=== PATIENT | male | born 1955 | race Caucasian/White ===

== ENCOUNTER 2017-02-10 09:46 | Emergency (ER) | payer BC ==
[2017-02-10 10:02] VITALS: BP 124/82
--- NOTE | 2017-02-10 10:50 | UC ---
Respiratory Complaint HPI - HPI Summary HPI Summary: right chest pain, chest tightness, cough/productive but no hemoptysis. He has had congestion and hoarse voice as well. He has hx of asthma and nebulizer and puffers have helped. No hx of PE or dvt and no prior heart disease. No FH of PE or DVT. - History of Current Complaint Chief Complaint: UCRespiratory Stated Complaint: CONGESTION COUGH SHORTNESS OF BREATH Time Seen by Provider: 02/10/17 10:38 Hx Obtained From: Patient Onset/Duration: Gradual Onset Timing: Constant Severity Initially: Moderate Severity Currently: Moderate Character: Cough: Productive Aggravating Factors: Deep Breaths, Recumbent Position Alleviating Factors: Bronchodilator Associated Signs And Symptoms: Positive: Dyspnea, URI, Nasal Congestion, Hoarseness. Negative: Calf Pain, Calf Swelling, Edema - Allergies/Home Medications Allergies/Adverse Reactions: Allergies Allergy/AdvReac Type Severity Reaction Status Date / Time Levofloxacin [From Levaquin] Allergy Severe resp Verified 02/10/17 09:54 distress Sulfa Drugs Allergy Severe heat Verified 02/10/17 09:54 stopped Amoxicillin Allergy Intermediate Rash Verified 02/10/17 09:54 Cefaclor [From Ceclor] Allergy Mild Rash Verified 02/10/17 09:54 Codeine AdvReac Mild migraines Verified 02/10/17 09:54 Home Medications: Home Medications Albuterol 2.5MG/3ML (0.083%)* [Ventolin 2.5 MG/3 ML NEB.ABELARDO*] 2.5 mg INH ONCE [History Confirmed 02/10/17] Albuterol HFA INHALER* [Ventolin HFA Inhaler*] 1 - 2 puff INH Q4H PRN 02/10/17 [ History Confirmed 02/10/17] PMH/Surg Hx/FS Hx/Imm Hx Previously Healthy: No - asthma. - Surgical History Surgical History: Yes Surgery Procedure, Year, and Place: cholecystectomy. hernia repair x3. acl left knee. sinus surgery x2 - Family History Known Family History: Positive: Cardiac Disease, Hypertension - Social History Alcohol Use: None Substance Use Type: None Smoking Status (MU): Never Smoked Tobacco Have You Smoked in the Last Year: No - Immunization History Most Recent Influenza Vaccination: Not the 2016/2017 Season Hx Tetanus, Diphtheria Vaccination: Yes Vaccination Up to Date: Yes Review of Systems ENT: Sinus Congestion Respiratory: Shortness Of Breath, Cough All Other Systems Reviewed And Are Negative: Yes Physical Exam Triage Information Reviewed: Yes Appearance: Well-Appearing, No Pain Distress, Well-Nourished Vital Signs: Initial Vital Signs Temp 98.3 F 02/10/17 09:51 Pulse 74 02/10/17 09:51 Resp 18 02/10/17 09:51 BP 124/82 02/10/17 09:51 Pulse Ox 94 02/10/17 09:51 Vital Signs Reviewed: Yes Eye Exam: Normal ENT: Positive: Pharynx normal, TMs normal, Muffled/hoarse voice. Negative: Tonsillar swelling, Tonsillar exudate, Trismus Neck exam: Normal Neck: Positive: Supple, Nontender, No Lymphadenopathy Respiratory: Positive: No respiratory distress, No accessory muscle use, Other: - increased expiratory phase.. Negative: Respiratory distress, Accessory muscle use, Crackles, Rhonchi, Stridor, Wheezing Cardiovascular Exam: Normal Musculoskeletal Exam: Normal Neurological Exam: Normal Psychological Exam: Normal Skin Exam: Normal UC Diagnostic Evaluation - Laboratory O2 Sat by Pulse Oximetry: 94 Respiratory Course/Dx - Course Course Of Treatment: sob and right chest pain that is improved by neb. he has associated hoarse voice, congestion, cough. We have considered cardiac etiology and PE but this is c/w with uri/bronchitis. there is no tachycardia as well. NO signs of DVT and neg homans lesli. - Differential Dx/Diagnosis Provider Diagnoses: uri. acute bronchitis with reactive airway disease. Discharge - Discharge Plan Condition: Good Disposition: HOME Prescriptions: Albuterol 2.5MG/3ML (0.083%)* [Ventolin 2.5 MG/3 ML NEB.ABELARDO*] 2.5 mg INH Q6H PRN #20 neb.[email or web address] PRN Reason: Cough Azithromyxin MARKO (NF) [Z-Marko (Zithromax) 250 mg tabs #6] 1 tab PO .TODAY, THEN 1 DAILY #6 tab predniSONE TAB* [Deltasone TAB*] 20 mg PO DAILY #15 tab Patient Education Materials: Acute Bronchitis (ED) Referrals: Jennifer Akers MD [Primary Care Provider] - 2 Days
--- NOTE | 2017-02-10 11:01 | RAD ---
HISTORY: Right-sided chest pain and cough COMPARISONS: April 08, 2013 VIEWS: 4: Frontal dual-energy and lateral views of the chest. FINDINGS: CARDIOMEDIASTINAL SILHOUETTE: The cardiomediastinal silhouette is normal. CHAPO: The chapo are normal. PLEURA: The costophrenic angles are sharp. No pleural abnormalities are noted. LUNG PARENCHYMA: There is hyperinflation with flattening of the diaphragm and expansion of the AP diameter of the chest. ABDOMEN: The upper abdomen is clear. There is no subphrenic gas. BONES AND SOFT TISSUES: No bone or soft tissue abnormalities are noted. OTHER: None. IMPRESSION: HYPERINFLATION, CONSISTENT WITH COPD. NO ACTIVE CARDIOPULMONARY DISEASE.
== END 2017-02-10 11:15 | disposition home or self-care (01) ==
LOC: UCCORT 09:46
DX: J06.9 Acute upper respiratory infection, unspecified (principal); J20.9 Acute bronchitis, unspecified; Z90.49 Acquired absence of other specified parts of digestive tract; Z88.1 Allergy status to other antibiotic agents; Z88.5 Allergy status to narcotic agent; Z88.2 Allergy status to sulfonamides
CPT/HCPCS: 71020; 99212; G0463

== ENCOUNTER 2017-02-22 12:44 | Emergency (ER) | payer BC ==
[2017-02-22 12:53] VITALS: BP 138/81
[2017-02-22] MEDS ORDERED: Albuterol 2.5 MG/3 ML NEB.SOL* (0.083%) INH ONE (13:01)
[2017-02-22] MEDS ORDERED: Ipratropium 0.5MG/2.5ML NEB* 0.5 MG/2.5 ML NEB.SOLN INH ONE (13:01)
--- NOTE | 2017-02-22 13:25 | RAD ---
HISTORY: Cough and dyspnea COMPARISONS: February 10, 2017 VIEWS: 4: Frontal dual-energy and lateral views of the chest. FINDINGS: CARDIOMEDIASTINAL SILHOUETTE: The cardiomediastinal silhouette is normal. CHAPO: The chapo are normal. PLEURA: The costophrenic angles are sharp. No pleural abnormalities are noted. LUNG PARENCHYMA: There is hyperinflation with flattening of the diaphragm and expansion of the AP diameter of the chest. ABDOMEN: The upper abdomen is clear. There is no subphrenic gas. BONES AND SOFT TISSUES: No bone or soft tissue abnormalities are noted. OTHER: None. IMPRESSION: HYPERINFLATION, CONSISTENT WITH COPD. NO ACTIVE CARDIOPULMONARY DISEASE.
--- NOTE | 2017-02-22 13:47 | UC ---
Respiratory Complaint HPI - HPI Summary HPI Summary: 62 yo male with 2 week hx of dyspnea somewhat with exertion worse when supine has had right sided cp on and off x a yr seen here 2 weeks ago improved with zpak and prednisone childhood asthma uses steroid inhaler daily no f/c no headache yesterday developed a bad cough felt SOB last pm - History of Current Complaint Chief Complaint: UCRespiratory Stated Complaint: TROUBLE BREATHING Time Seen by Provider: 02/22/17 12:49 Hx Obtained From: Patient Onset/Duration: Gradual Onset, Lasting Weeks Timing: Constant Severity Initially: Mild Pain Intensity: 2 Pain Scale Used: 0-10 Numeric Character: Cough: Nonproductive Aggravating Factors: Nothing Alleviating Factors: Nothing Associated Signs And Symptoms: Positive: Dyspnea - Allergies/Home Medications Allergies/Adverse Reactions: Allergies Allergy/AdvReac Type Severity Reaction Status Date / Time Levofloxacin [From Levaquin] Allergy Severe resp Verified 02/22/17 12:53 distress Sulfa Drugs Allergy Severe heat Verified 02/22/17 12:53 stopped Amoxicillin Allergy Intermediate Rash Verified 02/22/17 12:53 Cefaclor [From Ceclor] Allergy Mild Rash Verified 02/22/17 12:53 Codeine AdvReac Mild migraines Verified 02/22/17 12:53 PMH/Surg Hx/FS Hx/Imm Hx Previously Healthy: Yes Respiratory History: Asthma, Bronchitis, Pneumonia - Surgical History Surgical History: Yes Surgery Procedure, Year, and Place: cholecystectomy. hernia repair x3. acl left knee. sinus surgery x2 - Family History Known Family History: Positive: Cardiac Disease, Hypertension, Other - no fhx PE - Social History Alcohol Use: None Substance Use Type: None Smoking Status (MU): Never Smoked Tobacco Have You Smoked in the Last Year: No - Immunization History Most Recent Influenza Vaccination: Not the 2017/2017 Season Hx Tetanus, Diphtheria Vaccination: Yes Vaccination Up to Date: Yes Review of Systems Constitutional: Negative Skin: Negative Eyes: Negative ENT: Negative Respiratory: Shortness Of Breath, Cough Cardiovascular: Negative Gastrointestinal: Negative Genitourinary: Negative Motor: Negative Neurovascular: Negative Musculoskeletal: Negative Neurological: Negative Psychological: Negative Is Patient Immunocompromised?: No All Other Systems Reviewed And Are Negative: Yes Physical Exam Triage Information Reviewed: Yes Appearance: Well-Appearing - frequent cough, No Pain Distress, Well-Nourished Vital Signs: Initial Vital Signs Temp 98.4 F 02/22/17 12:48 Pulse 75 02/22/17 12:48 Resp 14 02/22/17 12:48 BP 138/81 02/22/17 12:48 Pulse Ox 98 02/22/17 12:48 Eyes: Positive: Conjunctiva Clear ENT: Positive: Hearing grossly normal, Pharynx normal, Pharyngeal erythema, TMs normal. Negative: Tonsillar swelling, Tonsillar exudate, Muffled/hoarse voice Neck: Positive: Supple, Nontender, No Lymphadenopathy Respiratory: Positive: Lungs clear, Normal breath sounds, No respiratory distress, No accessory muscle use, Other: - PEFR 750 Cardiovascular: Positive: RRR, No Murmur Abdomen Description: Positive: Nontender, No Organomegaly Musculoskeletal: Positive: ROM Intact, No Edema Neurological: Positive: Alert, Muscle Tone Normal Psychological Exam: Normal Skin Exam: Normal UC Diagnostic Evaluation - Laboratory O2 Sat by Pulse Oximetry: 98 - normal/not hypoxic - Radiology Xray Interpretation: No Acute Changes Radiology Interpretation Completed By: Radiologist - EKG Cardiac Rate: NL Cardiac Rhythm: Sinus: Normal Ectopy: None ST Segment: Normal Re-Evaluation - Re-Evaluation First Eval Re-Evaluation Time: 14:00 Change: Improved Respiratory Course/Dx - Differential Dx/Diagnosis Differential Diagnosis/HQI/PQRI: Other - has pet parrot-?psittacosis Provider Diagnoses: Dyspnea of uncertain cause. Bronchitis Discharge - Discharge Plan Condition: Stable Disposition: HOME Prescriptions: Albuterol 2.5MG/3ML (0.083%)* [Ventolin 2.5 MG/3 ML NEB.ABELARDO*] 2.5 mg INH QID PRN #1 neb.[email or web address] PRN Reason: Wheezing DOXYcycline CAP(*) [DOXYcycline 100MG CAP(*)] 100 mg PO BID #20 cap Ipratropium 0.5MG/2.5ML NEB* [Atrovent 0.5 MG NEB.ABELARDO*] 0.5 mg INH Q4H PRN #1 meb.soln PRN Reason: Sob/Wheezing Prednisone [Deltasone] 40 mg PO DAILY #10 tab Patient Education Materials: Acute Bronchitis (ED) Referrals: Jennifer Akers MD [Primary Care Provider] - Additional Instructions: I suggest you follow up with your provider this week You may need formal pulmonary function tests and director surface transportation referral To ER for new or worsening symptoms
== END 2017-02-22 14:34 | disposition home or self-care (01) ==
LOC: UCCORT 12:44
DX: J20.9 Acute bronchitis, unspecified (principal); Z88.1 Allergy status to other antibiotic agents; Z88.2 Allergy status to sulfonamides; Z88.5 Allergy status to narcotic agent
CPT/HCPCS: 71020; 93005; 99213; G0463; J7644

== ENCOUNTER 2017-05-15 17:04 | Emergency (ER) | payer BC ==
--- NOTE | 2017-05-15 17:57 | UC ---
Upper Extremity HPI - HPI Summary HPI Summary: 62 year old female presents with complains of right hand pain secondary to falling. - History of Current Complaint Stated Complaint: PT FELL INJURY RIGHT HAND Time Seen by Provider: 05/15/17 17:56 Hx Obtained From: Patient Onset/Duration: Sudden Onset Severity Initially: Moderate Severity Currently: Moderate Pain Scale Used: 0-10 Numeric - 8 - Allergies/Home Medications Allergies/Adverse Reactions: Allergies Allergy/AdvReac Type Severity Reaction Status Date / Time Levofloxacin [From Levaquin] Allergy Severe resp Verified 05/15/17 18:16 distress Sulfa Drugs Allergy Severe heat Verified 05/15/17 18:16 stopped Amoxicillin Allergy Intermediate Rash Verified 05/15/17 18:16 Cefaclor [From Ceclor] Allergy Mild Rash Verified 05/15/17 18:16 Codeine AdvReac Mild migraines Verified 05/15/17 18:16 Home Medications: Home Medications Celecoxib [Celebrex 50 MG CAP] 50 mg PO DAILY 05/15/17 [History Confirmed ] PMH/Surg Hx/FS Hx/Imm Hx Previously Healthy: Yes - Surgical History Surgical History: Yes Surgery Procedure, Year, and Place: cholecystectomy. hernia repair x3. acl left knee. sinus surgery x2 - Family History Known Family History: Positive: Cardiac Disease, Hypertension, Other - no fhx PE - Social History Alcohol Use: None Substance Use Type: None Smoking Status (MU): Never Smoked Tobacco Have You Smoked in the Last Year: No - Immunization History Most Recent Influenza Vaccination: Not the 2017/2017 Season Hx Tetanus, Diphtheria Vaccination: Yes Vaccination Up to Date: Yes Review of Systems Constitutional: Negative Skin: Negative Eyes: Negative ENT: Negative Respiratory: Negative Cardiovascular: Negative Gastrointestinal: Negative Genitourinary: Negative Motor: Negative Neurovascular: Negative Musculoskeletal: Other: - right hand pain/swelling Neurological: Negative Psychological: Negative All Other Systems Reviewed And Are Negative: Yes Physical Exam Triage Information Reviewed: Yes Vital Signs Reviewed: Yes Eye Exam: Normal ENT Exam: Normal Dental Exam: Normal Neck exam: Normal Neck: Positive: 1 Respiratory Exam: Normal Cardiovascular Exam: Normal Abdominal Exam: Normal Musculoskeletal: Positive: Other: - right hand pain/swelling Neurological Exam: Normal Psychological Exam: Normal Skin Exam: Normal Upper Extremity Course/Dx - Differential Dx/Diagnosis Provider Diagnoses: right hand pain/swelling. right thumb sprain Discharge - Discharge Plan Condition: Stable Disposition: HOME Prescriptions: Meloxicam [Mobic] 7.5 mg PO BID PC #30 tab Patient Education Materials: Hand Sprain (ED) Referrals: Stone Simon MD [Medical Doctor] - Jennifer Akers MD [Primary Care Provider] -
[2017-05-15 18:16] VITALS: BP 126/89
--- NOTE | 2017-05-15 18:30 | RAD ---
Indication: Right hand pain. 4 views of the right hand demonstrates no fracture. There is periosteal reaction at the fifth metacarpal. IMPRESSION: No fracture is noted although periosteal thickening is noted at the fifth metacarpal.
== END 2017-05-15 18:51 | disposition home or self-care (01) ==
LOC: UCCORT 17:04
DX: S63.601A Unspecified sprain of right thumb, initial encounter (principal); W19.XXXA Unspecified fall, initial encounter; Y93.9 Activity, unspecified; Y92.9 Unspecified place or not applicable; Y99.9 Unspecified external cause status; M79.641 Pain in right hand; M79.89 Other specified soft tissue disorders
CPT/HCPCS: 99212; G0463

== ENCOUNTER 2017-12-10 12:25 | Emergency (ER) | payer BC ==
[2017-12-10 13:07] VITALS: BP 130/87
--- NOTE | 2017-12-10 13:18 | UC ---
Respiratory Complaint HPI - HPI Summary HPI Summary: 62 y/o male presents to the urgent care c/o productive cough and chest congestion w/ mild SOB an wheezing for the past week. Pt has been using his albuterol inhaler w/o any improvement. Pt states some co-worker have been Dx w/ Bronchitis. He is also concern w/ a rash in his left side of abdomen that started yesterday. Pt has Hx of shingles and he thinks it is coming back. rash is burning. Pt denies fever, SOB, chest pain, abdominal pain, N/V/D. He has taken also Alkaseltzer cold and plus ot alleviate symptoms. - History of Current Complaint Chief Complaint: UCGeneralIllness Stated Complaint: UPPER RESPIRATORY/SKIN COMPLAINT Time Seen by Provider: 12/10/17 13:16 Hx Obtained From: Patient Onset/Duration: Gradual Onset, Lasting Weeks - 1 week, Still Present, Worse Since - yesterday Timing: Constant Severity Initially: Mild Severity Currently: Moderate Pain Intensity: 4 Pain Scale Used: 0-10 Numeric Character: Cough: Productive, Sputum Description: - yellowish Aggravating Factors: Recumbent Position Alleviating Factors: OTC Meds Associated Signs And Symptoms: Positive: Dyspnea, Chills, Wheezing, URI, Nasal Congestion, Sinus Discomfort Related History: Seasonal Allergies - Risk Factors Pulmonary Embolism Risk Factors: Negative Cardiac Risk Factors: Negative Pseudomonas Risk Factors: Negative Tuberculosis Risk Factors: Negative - Allergies/Home Medications Allergies/Adverse Reactions: Allergies Allergy/AdvReac Type Severity Reaction Status Date / Time levofloxacin Allergy Severe RESP Verified 12/10/17 13:16 DISTRESS Sulfa (Sulfonamide Allergy Severe HEART Verified 12/10/17 13:16 Antibiotics) STOPPED amoxicillin Allergy Intermediate Rash Verified 12/10/17 13:16 cefaclor [From [facility]] Allergy Mild Rash Verified 12/10/17 13:16 codeine Allergy Mild MIGRANES Verified 12/10/17 13:17 Home Medications: Home Medications Meloxicam [Mobic] 7.5 mg PO BID PC PRN 12/10/17 [History] PMH/Surg Hx/FS Hx/Imm Hx Previously Healthy: Yes Other Endocrine History: fibromyalgia, osteoarthritis of back Respiratory History: Asthma - Surgical History Surgical History: Yes Surgery Procedure, Year, and Place: cholecystectomy. hernia repair x3. acl left knee. sinus surgery x2 - Family History Known Family History: Positive: Cardiac Disease, Hypertension, Other - no fhx PE - Social History Occupation: Employed Full-time Lives: With Family Alcohol Use: None Substance Use Type: None Smoking Status (MU): Never Smoked Tobacco Have You Smoked in the Last Year: No - Immunization History Most Recent Influenza Vaccination: Not the 2016/2017 Season Hx Tetanus, Diphtheria Vaccination: Yes Vaccination Up to Date: Yes Review of Systems Constitutional: Chills, Fatigue Skin: Negative Eyes: Negative ENT: Nasal Discharge - yellowish Respiratory: Shortness Of Breath - at times, Cough - yellowish phlegm,, Other - wheezing Cardiovascular: Negative Gastrointestinal: Negative Genitourinary: Negative Motor: Negative Neurovascular: Negative Musculoskeletal: Negative Neurological: Negative Psychological: Negative Is Patient Immunocompromised?: No All Other Systems Reviewed And Are Negative: Yes Physical Exam - Summary Physical Exam Summary: Vital Signs Reviewed: Yes General: well developed, well nourished male sitting in the examining table w/o any apparent distress Eyes: Positive: Conjunctiva Clear - PERRLA, EOMI, fundi grossly normal ENT: Positive: Normal ENT inspection, Hearing grossly normal, Pharynx normal, Nasal congestion - edematous and erythematous nasal mucosa, Nasal drainage - yellowish drainage, TMs normal. Negative: Tonsillar swelling, Tonsillar exudate Neck: Positive: Supple, Nontender, No Lymphadenopathy Respiratory: no orthopnea or dyspnea. Able to speak in full sentences, no retractions or accessory muscle use, no tripod position, stridor, or head bobbing. Positive breath sounds bilaterally, Posterior b/l lungs w/ scattered wheezing and rhonchi. Cardiovascular: Positive: RRR, No Murmur, Pulses Normal, Brisk Capillary Refill Abdomen Description: Positive: Nontender, No Organomegaly, Soft. Negative: CVA Tenderness (R), CVA Tenderness (L) Bowel Sounds: Positive: Present Musculoskeletal Exam: Normal Musculoskeletal: Positive: Strength Intact, ROM Intact, No Edema Neurological Exam: Normal Psychological Exam: Normal Skin Exam: Positive mild erythematous maculopapular eruption, some papule with clear vesicles. located in the left mid side of abdomen in a dermatomal distribution, mild tenderness to palpation, no swelling observed. Triage Information Reviewed: Yes Vital Signs: Initial Vital Signs Temp 98.9 F 12/10/17 12:58 Pulse 72 12/10/17 12:58 Resp 15 12/10/17 12:58 BP 130/87 12/10/17 12:58 Pulse Ox 97 12/10/17 12:58 Diagnostic Evaluation - Laboratory O2 Sat by Pulse Oximetry: 97 Respiratory Course/Dx - Course Course Of Treatment: 62 y/o male presents to the urgent care c/o productive cough and chest congestion w/ mild SOB an wheezing for the past week. Pt has been using his albuterol inhaler w/o any improvement. Pt states some co-worker have been Dx w/ Bronchitis. He is also concern w/ a rash in his left side of abdomen that started yesterday. Pt has Hx of shingles and he thinks it is coming back. rash is burning. Pt denies fever, SOB, chest pain, abdominal pain , N/V/D. He has taken also Alkaseltzer cold and plus ot alleviate symptoms.Hx obtained. Pt w/ asthma exacerbation and shingles in the left side of mid abdomen on examination. Pt w/ Positive breath sounds bilaterally, Posterior b/l lungs w/ scattered wheezing and rhonchi on examination. Pt w/. Asthma exacerbation due to Acute Bronchitis:Prednisone PO and Duoneb Treatment ordered: 1 Tx given to patient. Patient tolerated well treatment and lungs improved, mild wheezing only in posterior RT lung, O2 sat 98%. Patient left the clinic ambulating and feeling better. Chest X-ray ordred: Impression: negative for acute cardiopulmonary disease. Patient prescribed PO Z-marko, Prednisone PO taper dose and Duoneb Tx and Valtrex PO for herpes Zoster as directed below. The patient was recommended to increase fluid intake. Take medications as recommended and patient advised to continue w/ Duoneb TID. Patient recommended to return to the clinic or go to the nearest ER if symptoms do not improve or worsen. Patient understood and agreed w/ D/C instructions. - Differential Dx/Diagnosis Differential Diagnosis/HQI/PQRI: Asthma, Bronchitis, Laryngitis, Lower Resp Infection, Sinusitis, Other - pneumonia Provider Diagnoses: 1- Acute asthma exacerbation due to bronchitis. 2- Herpes Zoster in left mid abdomen Discharge - Sign-Out/Discharge Documenting (check all that apply): Patient Departure - D/C home - Discharge Plan Condition: Stable Disposition: HOME Prescriptions: Acyclovir [Acyclovir 5% TOPICAL] 5 % EX QID #1 oint...g. Albuterol/Ipratropium NEB.ABELARDO* [Duoneb (Albuterol 2.5 MG/Ipratropium 0.5 MG)] 1 neb INH Q6H PRN #1 marko PRN Reason: Wheezing Azithromyxin MARKO (NF) [Z-Marko (Zithromax) 250 mg tabs #6] 2 tab PO .TODAY, THEN 1 DAILY #6 tab predniSONE TAB* [Deltasone 20 MG TAB*] 20 mg PO DAILY #8 tab ValACYclovir (*) [Valtrex 1 GM(*)] 1 gm PO TID #21 tab Patient Education Materials: Asthma (ED), Shingles (ED), Acute Bronchitis (ED) Referrals: Jennifer Akers MD [Primary Care Provider] - 3 Days Additional Instructions: 1- Take Prednisone PO taper dose as directed starting tomorrow. First loading dose given today. Take Z-marko PO as directed 2-Use the Duoneb nebulizer treatment to alleviate SOB, and wheezing as directed . Increase fluid intake, rest and eat well. 3- If symptoms do not improve or worsen or your develop SOB with fever and severe wheezing please go immediately to the ER further evaluation and treatment. 4- Take Valtrex PO to alleviate shingles. Take Ibuprofen PO q6-8hrs prn for pain 5- F/u with your PCP in 3 days for further management on your Asthma if not improvement of symptoms - Billing Disposition and Condition Condition: STABLE Disposition: Home
[2017-12-10] MEDS ORDERED: predniSONE TAB* 20 MG PO ONE (13:43)
[2017-12-10] MEDS ORDERED: Albuterol/Ipratropium NEB.SOL* Albuterol 2.5 MG/Ipratropium 0.5 MG 3 ML INH ONE (13:44)
--- NOTE | 2017-12-10 14:18 | RAD ---
INDICATION: Productive cough and wheezing. COMPARISON: Comparison is made with prior study from February 22, 2017. TECHNIQUE: Dual-energy PA and lateral views of the chest were obtained. FINDINGS: The heart is within normal limits in size. Mediastinal and hilar contours appear within normal limits. The lungs are clear. No pleural effusion is present. IMPRESSION: NO EVIDENCE FOR ACTIVE CARDIOPULMONARY DISEASE.
== END 2017-12-10 14:38 | disposition home or self-care (01) ==
LOC: UCCORT 12:25
DX: J45.901 Unspecified asthma with (acute) exacerbation (principal); B02.9 Zoster without complications
CPT/HCPCS: 71046; 99212; A9270-GY; G0463; J7512

== ENCOUNTER 2018-03-14 10:15 | Emergency (ER) | payer BC ==
[2018-03-14] MEDS ORDERED: Morphine INJ** 4 MG/ML 1 ML CARPUJECT IV ONE (10:22)
[2018-03-14] MEDS ORDERED: Ondansetron INJ* 2 MG/ML VIAL IV ONE (10:22)
[2018-03-14] MEDS ORDERED: NS 0.9% 1000 ML* 1,000 ML IV ONE ×2 (10:22→10:48)
[2018-03-14 10:50] LABS: ABS Basophils 0.1 10^3/ul (0-0.2); ABS Eosinophils 0.1 10^3/ul (0-0.6); ABS Lymphocytes 0.8 10^3/ul (1.0-4.8); ABS Monocytes 0.5 10^3/ul (0-0.8); ABS Neutrophils 4.5 10^3/ul (1.5-7.7); ABS Nucleated RBC 0 10^3/ul; Hematocrit 50 % (42-52); Hemoglobin 17.2 g/dl (14.0-18.0); Lymphocyte % 13.1 % (25-47); Mean Corpuscular HGB Conc 35 g/dl (31-36); Mean Corpuscular Hemoglobin 30 pg (27-31); Mean Corpuscular Volume 87 fL (80-94); Mean Platelet Volume 8.4 um3 (7.4-10.4); Nucleated Red Blood Cells % 0.5; Platelet Count 144 10^3/ul (150-450); Red Blood Count 5.69 10^6/ul (4.00-5.40); Red Cell Distribution Width 14 % (10.5-15)
[2018-03-14 11:08] LABS: EGFR Non-African American 67.2 (>60)
[2018-03-14] MEDS ORDERED: Morphine INJ* 4 MG/ML 1 ML SYRINGE (NEW SYRINGE VERSION) ONE (11:17)
--- NOTE | 2018-03-14 11:35 | ED ---
GI/ HPI - HPI Summary HPI Summary: Pt is a 63 y/o male who presents to the ED c/o N/V/D for 4 days. He states the symptoms began with severe N/V, which has now resolved somewhat. Now he mainly c /o abdominal pain, abdominal spasms, chills, weakness, dehydration, body aches, and diarrhea. The diarrhea is mainly watery, but sometimes is purulent and orange. He denies any fever. The abdominal pain is not constant, and is worsened by eating or drinking. It is currently a 3/10 in severity, but last night was an 8/10. As per , he was only able to eat some applesauce yesterday and has lost 15 lbs in the past 4 days. Pt has a hx of diverticulitis , and hernia repairs. He denies any recent change in diet, travel, or camping. Pt has had recent healthcare exposure and is around small children. He denies any smoking or drinking. Pt was recently taken off Omeprazole, but took one this morning. He had a recent endoscopy, and had a bought of tachycardia 3 weeks ago. - History of Current Complaint Chief Complaint: EDNauseaVomitDiarrh Time Seen by Provider: 03/14/18 10:34 Stated Complaint: FLU LIKE SYMPTOMS Hx Obtained From: Patient, Family/Occ Med Physician - Onset/Duration: Started Days Ago - 4, Still Present Timing: Constant Severity: Severe Current Severity: Moderate - 3/10 Pain Intensity: 8 Location of Pain: Diffuse Pain Characteristics: Cramping Associated Signs and Symptoms: Positive: Weakness, Nausea, Vomiting, Weight Loss , Diarrhea, Abdominal Pain. Negative: Fever Aggravating Factor(s): Food, Liquids - Allergy/Home Medications Allergies/Adverse Reactions: Allergies Allergy/AdvReac Type Severity Reaction Status Date / Time levofloxacin Allergy Severe RESP Verified 03/14/18 10:20 DISTRESS Sulfa (Sulfonamide Allergy Severe HEART Verified 03/14/18 10:20 Antibiotics) STOPPED amoxicillin Allergy Intermediate Rash Verified 03/14/18 10:20 cefaclor [From Ceclor] Allergy Mild Rash Verified 03/14/18 10:20 codeine Allergy Mild MIGRANES Verified 03/14/18 10:20 PMH/Surg Hx/FS Hx/Imm Hx Endocrine/Hematology History: Denies: Hx Diabetes Cardiovascular History: Denies: Hx Hypertension Respiratory History: Reports: Hx Asthma - as a child GI History: Reports: Hx Diverticulosis - Diverticulitis, Hx Ulcer - GI BLEED - Surgical History Surgery Procedure, Year, and Place: cholecystectomy. hernia repair x3. acl left knee. sinus surgery x2 - Immunization History Immunizations Up to Date: Yes Infectious Disease History: No Infectious Disease History: Reports: Hx Shingles Denies: Traveled Outside the [place] in Last 30 Days - Family History Known Family History: Positive: Cardiac Disease, Hypertension, Other - no fhx PE - Social History Alcohol Use: None Hx Substance Use: No Substance Use Type: Reports: None Hx Tobacco Use: No Smoking Status (MU): Never Smoked Tobacco Have You Smoked in the Last Year: No Review of Systems Positive: Chills, Other - Body aches, dehydrated. Negative: Fever Positive: Abdominal Pain, Vomiting, Diarrhea, Nausea Positive: Weakness All Other Systems Reviewed And Are Negative: Yes Physical Exam - Summary Physical Exam Summary: Appearance: Well appearing, no pain distress Skin: warm, dry, reflects adequate perfusion Head/face: normal Eyes: EOMI, UCHE ENT: mucous membranes dry and tacky Neck: supple, non-tender Respiratory: CTA, breath sounds present Cardiovascular: RRR, pulses symmetrical Abdomen: non-tender, soft, no masses, no rebound or guarding, diminished bowel sounds Bowel Sounds: present Musculoskeletal: normal, strength/ROM intact Neuro: normal, sensory motor intact, A&Ox3 Triage Information Reviewed: Yes Vital Signs On Initial Exam: Initial Vitals Temp Pulse Resp BP Pulse Ox 96.6 F 75 16 118/85 99 03/14/18 10:17 03/14/18 10:17 03/14/18 10:17 03/14/18 10:17 03/14/18 10:17 Vital Signs Reviewed: Yes Diagnostics - Vital Signs Vital Signs Temp Pulse Resp BP Pulse Ox 03/14/18 11:26 18 03/14/18 10:17 96.6 F 75 16 118/85 99 - Laboratory Lab Results: Lab Results 03/14/18 03/14/18 03/14/18 Range/Units 10:43 10:43 10:43 WBC 6.0 (3.5-10.8) 10^3/ul RBC 5.69 H (4.00-5.40) 10^6/ul Hgb 17.2 (14.0-18.0) g/dl Hct 50 (42-52) % MCV 87 (80-94) fL MCH 30 (27-31) pg MCHC 35 (31-36) g/dl RDW 14 (10.5-15) % Plt Count 144 L (150-450) 10^3/ul MPV 8.4 (7.4-10.4) um3 Neut % (Auto) 75.5 (38-83) % Lymph % (Auto) 13.1 L (25-47) % [place] % (Auto) 9.1 H (0-7) % Eos % (Auto) 1.0 (0-6) % Baso % (Auto) 1.3 (0-2) % Absolute Neuts (auto) 4.5 (1.5-7.7) 10^3/ul Absolute Lymphs (auto) 0.8 L (1.0-4.8) 10^3/ul Absolute Monos (auto) 0.5 (0-0.8) 10^3/ul Absolute Eos (auto) 0.1 (0-0.6) 10^3/ul Absolute Basos (auto) 0.1 (0-0.2) 10^3/ul Absolute Nucleated RBC 0 10^3/ul Nucleated RBC % 0.5 Sodium 137 (135-145) mmol/L Potassium 3.4 L (3.5-5.0) mmol/L Chloride 102 (101-111) mmol/L Carbon Dioxide 30 (22-32) mmol/L Anion Gap 5 (2-11) mmol/L BUN 16 (6-24) mg/dL Creatinine 1.10 (0.67-1.17) mg/dL Est GFR ( Amer) 81.3 (>60) Est GFR (Non-Af Amer) 67.2 (>60) BUN/Creatinine Ratio 14.5 (8-20) Glucose 105 H (70-100) mg/dL Lactic Acid 0.5 (0.5-2.0) mmol/L Calcium 9.5 (8.6-10.3) mg/dL Total Bilirubin 0.60 (0.2-1.0) mg/dL AST 32 (13-39) U/L ALT 31 (7-52) U/L Alkaline Phosphatase 63 (34-104) U/L C-Reactive Protein 11.90 H (<8.01) mg/L Total Protein 7.0 (6.4-8.9) g/dL Albumin 4.3 (3.2-5.2) g/dL Globulin 2.7 (2-4) g/dL Albumin/Globulin Ratio 1.6 (1-3) Lipase 17 (11.0-82.0) U/L Result Diagrams: 03/14/18 10:43 03/14/18 10:43 Lab Statement: Any lab studies that have been ordered have been reviewed, and results considered in the medical decision making process. GIGU Course/Dx - Course Course Of Treatment: Patient with profuse watery diarrhea with some mucus in it without any exposure to C. difficile or travel outside the country. He is also not been camping. He was treated here with 2 L of IV fluids and morphine for cramping. He is unable to produce a stool specimen for testing. He will follow up closely with his primary care physician - Diagnoses Differential Diagnoses - Male: Other - C. difficile colitis, Giardia, viral gastroenteritis, bacterial gastroenteritis Provider Diagnoses: Acute gastroenteritis Discharge - Sign-Out/Discharge Documenting (check all that apply): Patient Departure - Discharge - Discharge Plan Condition: Improved Disposition: HOME Prescriptions: Hyoscyamine Sulfate [Levsin/Sl] 0.125 mg SL Q4H PRN #20 sub PRN Reason: abdominal cramping Ondansetron [Zofran Odt] 4 mg PO Q6H PRN #12 tab.rapdis PRN Reason: Nausea Patient Education Materials: Gastroenteritis (ED) Referrals: Jennifer Akers MD [Primary Care Provider] - Additional Instructions: Drink plenty of fluids. [place] diet as tolerated. Return with fever, increased abdominal pain, blood in the stools, worse, new symptoms or other concerns area did call today to schedule prompt follow-up with your doctor. - Billing Disposition and Condition Condition: IMPROVED Disposition: Home - Attestation Statements Document Initiated by Scribe: Yes Documenting Scribe: Yudi Becker Provider For Whom Scribe is Documenting (Include Credential): Agustin Caba MD Scribe Attestation: Yudi Burr, scribed for Agustin Caba MD on 03/14/18 at 2100. Scribe Documentation Reviewed: Yes Provider Attestation: The documentation as recorded by the Yudi burk accurately reflects the service I personally performed and the decisions made by me, Agustin Caba MD
[2018-03-14 13:23] LABS: Urine Appearance Clear; Urine Blood Negative (Negative); Urine Color Yellow; Urine Ketones Trace (Negative); Urine Protein Negative (Negative); Urine Specific Gravity 1.011 (1.010-1.030); Urine Urobilinogen Negative (Negative)
[2018-03-14 13:39] VITALS: BP 120/73
== END 2018-03-14 13:38 | disposition home or self-care (01) ==
LOC: ED 10:15
DX: K52.9 Noninfective gastroenteritis and colitis, unspecified (principal); R11.2 Nausea with vomiting, unspecified; R53.1 Weakness; R63.4 Abnormal weight loss; R19.7 Diarrhea, unspecified; Z88.0 Allergy status to penicillin
CPT/HCPCS: 36415; 80053; 81003; 83605; 83690; 85025; 86140; 96374; 96375; 99283; J2270; J2405

== ENCOUNTER 2018-05-02 16:22 | Emergency (ER) | payer BC ==
--- OUTSIDE RECORDS SUMMARY | 2018-05-02 16:36 | XMS REPORT | Continuity of Care Document ---
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 Payers Type Date Identification Numbers Payment Provider Subscriber Effective: 2011 Policy Number: [id number] [facility] Commercial Micaela Arizmendi PayID: [id number] [address] [address] [place] [address] Advance Directives Description No Information Available Problems Date Description Provider Status Onset: 09/23/2010 Gastroesophageal reflux disease Jennifer Akers MD Active Onset: 09/23/2010 Impaired fasting glycaemia Jennifer Akers MD Active Onset: 11/29/2008 Neck pain Jennifer Akers MD Active Onset: 07/22/2005 Sciatica Jennifer Akers MD Active Onset: 04/20/2005 Allergic rhinitis Jennifer Akers MD Active Onset: 09/25/2014 Constipation Active Onset: 02/19/2015 Fibromyalgia Jennifer Akers MD Active Onset: 08/06/2016 Mild intermittent asthma Jennifer Akers MD Active Onset: 11/06/2016 Mixed hyperlipidemia Jennifer Akers MD Active Onset: 09/16/2014 Diverticulitis Resolved Resolved: 11/16/2014 Onset: 11/16/2014 Bleeding diverticulosis Jennifer Akers MD Resolved Resolved: 11/16/2014 Family History Date Family Member(s) Problem(s) Comments : (age 49 Father due to Cancer, Years) Pancreatic Mother Hypertension : (age 72 Mother due to AL Years) Maternal Grandmother Diabetes, Adult Diabetes Mellitus,II Social History Type Date Description Comments Sex Unknown Marital Status Lives With Spouse 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 Tobacco Use Start: Unknown Never Smoked Cigarettes Smoking Status Reviewed: 09/06/17 Never Smoked Cigarettes ETOH Use Rarely consumes alcohol Tobacco Use Start: Unknown Patient has never smoked Allergies, Adverse Reactions, Alerts Date Description Reaction Status Severity Comments 03/06/2014 Penicillins Active 03/06/2014 Sulfa (Sulfonamide Antibiotics) Active 12/02/2011 Amoxicillin Active 03/06/2014 Quinolones Active 12/02/2011 Ceclor Active 03/06/2014 Ampicillin Active 04/20/2005 Codeine Active 03/06/2014 Cefaclor Active 03/06/2014 Levofloxacin Active 11/06/2016 Atorvastatin muscle spasms Active Severe Medications Medication Date Status Form Strength Qnty SIG Indications Ordering Provider Albuterol 02/26 Active Nebulizer (2.5mg/3M 225ml 3 J45.20 Oswald Sulfate /2016 L) 0.083% milliliters MD Jennifer nebulized every 4 hours as needed cough, wheezing, or shortness of breath Ipratropium 02/26 Active Solution 0.5-2.5(3 90ml 0.5 mg Oswald, [place]/Albutero /2016 )mg/3ML nebulizer 4 MD Jennifer l Sulfate times daily Azelastine HCL 02/05 Active Solution 0.1% 90ml use 2 Oswald, (Nasal) sprays in MD Jennifer each nostril twice a day Proair HFA 11/16 Active Aerosol 108(90Bas 3unit 2 puffs Bey, /2014 e) s every 4 Darron, mcg/Act hours as DO needed Tramadol HCL 11/19 Active Tablets 50mg 540ta take 2 Oswald, bs tablets by MD Jennifer mouth four times a day as needed for pain mdd 6 Trazodone HCL 04/20 Active Tablets 50mg 90tab take 1 Oswald s tablet at MD Jennifer bedtime Docusate Sodium Active Tablets 100mg Once Daily Unknown / Mucinex Active Tablets ER 600mg Every 12 Unknown /0000 12HR Hours Coenzyme Q10 Active Capsules 200-20mg- Once Daily Unknown Unit Librax Active Capsules 5-2.5mg 1 by mouth Bony, /0000 up to four Serafin, times a day Multivitamin 00 Active Tablets Adt 50+ 2 by mouth Unknown Adults 50+ /0000 once daily Omeprazole Active Capsules DR 40mg 1 by mouth M79.7 Unknown / every day Esomeprazole 04/[address] 40mg 90cap 1 by mouth M79.7 Oswald Magnesium s every day MD Jennifer - 04/25 Rosuvastatin 06/03 Hx Tablets 5mg 90tab 1 by mouth E78.2 Oswald Calcium s every day MD Jennifer - 09/06 Atorvastatin 08/06 Hx Tablets 20mg 90tab 1 by mouth E78.2 Oswald Calcium s every day MD Jennifer - 11/06 Flonase Allergy 02/05 Hx Suspension 50mcg/Act 48uni 2 sprays to Oswald, ts each MD Jennifer - nostril 04/24 daily for nasal congestion Azithromycin 10/28 Hx Tablets 250mg 4tabs as Directed - 02/05 Doxycycline 06/26 Hx Tablets 100mg 28tab 1 by mouth J01.90 Selena Akers s twice a day MD Jennifer - x 14 days 07/10 Doxycycline 01/[address] 100mg 20tab 1 by mouth 461.9 Digiovann cl s every 12 a, - hours for Joanna, 01/24 10 days, take with food but not milk Ciprofloxacin 09/17 Hx Tablets 500mg 20tab 2 Times A Unknown s Day - 10/02 Ferrous Sulfate 09/17 Hx Tablets 325(65Fe) 90tab 3 Times mg s Daily - 10/02 Metronidazole 09/17 Hx Tablets 500mg 30tab 3 Times Unknown s Daily - 10/02 Ondansetron 09/17 Hx Tablets 4mg 10tab Every 6-8 Dispers s Hours as - Needed prn 04/24 Nausea Tamiflu 06/18 Hx Capsules 75mg 10cap 1 by mouth Altaf, s twice a day Magaly Jacobo DO 09/25 Flonase 04/27 Hx Suspension 50mcg/Act 48uni 2 sprays to Oswald, ts each MD Jennifer - nostril 02/05 daily for nasal congestion Zolpidem 12/07 Hx Tablets 10mg 30tab 1 by mouth Anne Marie Akers s every at MD Jennifer - bedtime as 11/06 needed Ventolin HFA 03/02 Hx Aerosol 108mcg/Ac 3unit 2 puffs Oswald t s every 4 MD Jennifer - hours as 11/16 Pulmicort 06/26 Hx Aerosol 90mcg/Act 3unit 1 Luisito Akers /2011 s inhalation MD Jennifer - twice a day 06/03 Pantoprazole 05/[address] 40mg 90tab 1 by mouth Mason Akers s every day MD Jennifer - 04/24 Ibuprofen 07/02 Hx Tablets 800mg 90tab take 1 Oswald s tablet MD Jennifer - daily if 04/15 Astelin 04/22 Hx Solution 137mcg/Sp 3unit instill 2 Oswald ray s sprays in MD Jennifer - each 02/05 nostril times a day as needed Diphenhydramine Hx Capsules 25mg AT Bedtime Unknown HCL /0000 - 02/25 Ibuprofen 00 Hx Tablets 400mg as Needed Unknown /0000 - 02/05 Celebrex 00 Hx Capsules 50mg 1 by mouth HaydenMan /0000 every day MD chris - per pain 05/07 Immunizations CPT Code Status Date Vaccine Reaction Lot # [id number] Given 04/22/2018 Flu Vaccine NOS [id number] Given 09/06/2017 Pneumococcal 23 Immunization Pt tolerated well [id number] Adult Or Immunosuppressed Patient Q2039 Given 05/07/2017 Flu Vaccine NOS Q2039 Given 04/02/2016 Flu Vaccine NOS Q2039 Given 03/29/2015 Flu Vaccine NOS [id number] Given 03/16/2014 Influenza Virus Vaccine,Quadrivalent,Split,Prese rv Free 3 Yrs+ 70440 Given 12/11/2013 Zoster (Zostavax) 97801 Given 09/28/2009 Tetanus And Diptheria Toxoids For Adult Use-preservative free 15440 Given 11/29/2008 Tdap (Adacel) Ages 7 And Above Only Q2039 Refused 04/13/2018 Flu Vaccine NOS WILL GET AT WORK Vital Signs Date Vital Result Comment 04/25/2018 11:04am Weight 234.00 lb Heart Rate 78 /min BP Systolic 118 mmHg BP Diastolic 68 mmHg Respiratory Rate 18 /min Height 71 inches 5'11" O2 % BldC Oximetry 97 % Ra BMI (Body Mass Index) 32.6 kg/m2 09/06/2017 11:02am Weight 237.00 lb Heart Rate 76 /min BP Systolic 122 mmHg BP Diastolic 70 mmHg Respiratory Rate 18 /min Height 71 inches 5'11" 06/03/17 BMI (Body Mass Index) 33.1 kg/m2 06/03/2017 9:22am Body Temperature 97.5 F Weight 248.00 lb Heart Rate 84 /min BP Systolic 112 mmHg BP Diastolic 72 mmHg Respiratory Rate 18 /min Height 71 inches 5'11" 06/03/17 O2 % BldC Oximetry 97 % BMI (Body Mass Index) 34.6 kg/m2 02/25/2017 9:03am Body Temperature 97.6 F Weight 246.00 lb Heart Rate 80 /min BP Systolic 140 mmHg BP Diastolic 70 mmHg Respiratory Rate 18 /min Height 71.5 inches 5'11.50" 08/06/16 O2 % BldC Oximetry 96 % BMI (Body Mass Index) 33.8 kg/m2 11/06/2016 9:39am Weight 241.00 lb Heart Rate 68 /min BP Systolic 120 mmHg BP Diastolic 70 mmHg Respiratory Rate 18 /min Height 71.5 inches 5'11.50" 08/06/16 BMI (Body Mass Index) 33.1 kg/m2 08/06/2016 9:09am Weight 242.00 lb Heart Rate 88 /min BP Systolic 122 mmHg BP Diastolic 80 mmHg Respiratory Rate 18 /min Height 71.5 inches 5'11.50" 08/06/16 BMI (Body Mass Index) 33.3 kg/m2 04/15/2016 8:34am Weight 227.00 lb Heart Rate 64 /min BP Systolic 110 mmHg BP Diastolic 74 mmHg Respiratory Rate 18 /min Height 71.5 inches 5'11.50" BMI (Body Mass Index) 31.2 kg/m2 02/06/2016 8:09am Weight 222.00 lb Heart Rate 72 /min BP Systolic 124 mmHg BP Diastolic 72 mmHg Respiratory Rate 18 /min Height 71.5 inches 5'11.50" BMI (Body Mass Index) 30.5 kg/m2 07/30/2015 1:33pm Weight 232.00 lb Heart Rate 76 /min BP Systolic 110 mmHg BP Diastolic 78 mmHg Respiratory Rate 18 /min Height 71.25 inches 5'11.25" BMI (Body Mass Index) 32.1 kg/m2 06/26/2015 11:02am Body Temperature 97.5 F Weight 230.00 lb Heart Rate 82 /min BP Systolic 120 mmHg BP Diastolic 80 mmHg Respiratory Rate 18 /min Height 71.25 inches 5'11.25" O2 % BldC Oximetry 98 % BMI (Body Mass Index) 31.9 kg/m2 06/12/2015 10:08am Weight 230.00 lb Heart Rate 76 /min BP Systolic 122 mmHg BP Diastolic 70 mmHg Respiratory Rate 18 /min Height 71.25 inches 5'11.25" BMI (Body Mass Index) 31.9 kg/m2 05/07/2015 2:52pm Weight 236.00 lb Heart Rate 76 /min BP Systolic 102 mmHg BP Diastolic 70 mmHg Respiratory Rate 18 /min Height 71.25 inches 5'11.25" BMI (Body Mass Index) 32.7 kg/m2 03/25/2015 3:56pm Weight 234.00 lb Heart Rate 76 /min BP Systolic 112 mmHg BP Diastolic 80 mmHg Respiratory Rate 18 /min Height 71.25 inches 5'11.25" BMI (Body Mass Index) 32.4 kg/m2 02/19/2015 1:40pm Body Temperature 97.1 F Weight 238.00 lb Heart Rate 76 /min BP Systolic 102 mmHg BP Diastolic 70 mmHg Respiratory Rate 18 /min Height 71.25 inches 5'11.25" BMI (Body Mass Index) 33.0 kg/m2 01/14/2015 4:01pm Body Temperature 98.5 F Weight 223.00 lb Heart Rate 84 /min BP Systolic 128 mmHg BP Diastolic 76 mmHg Respiratory Rate 19 /min Height 71.25 inches 5'11.25" O2 % BldC Oximetry 98 % Ra BMI (Body Mass Index) 30.9 kg/m2 11/16/2014 1:46pm Weight 222.00 lb Heart Rate 88 /min BP Systolic 120 mmHg BP Diastolic 80 mmHg Respiratory Rate 18 /min Height 71.25 inches 5'11.25" BMI (Body Mass Index) 30.7 kg/m2 10/02/2014 4:44pm Weight 226.00 lb Heart Rate 80 /min BP Systolic 122 mmHg BP Diastolic 80 mmHg Respiratory Rate 18 /min Height 71.25 inches 5'11.25" BMI (Body Mass Index) 31.3 kg/m2 09/25/2014 11:08am Body Temperature 98.7 F Weight 228.00 lb Heart Rate 72 /min BP Systolic 130 mmHg BP Diastolic 82 mmHg Height 71.25 inches 5'11.25" BMI (Body Mass Index) 31.6 kg/m2 04/27/2014 1:24pm Weight 233.00 lb Heart Rate 80 /min BP Systolic 122 mmHg BP Diastolic 80 mmHg Respiratory Rate 18 /min Height 71.25 inches 5'11.25" 12/07/2013 9:54am Weight 238.00 lb Heart Rate 68 /min BP Systolic 112 mmHg BP Diastolic 70 mmHg Respiratory Rate 18 /min Height 71.25 inches 5'11.25" 10/10/2013 1:10pm BP Systolic 130 mmHg BP Diastolic 72 mmHg 10/10/2013 1:10pm Weight 234.00 lb Heart Rate 84 /min BP Systolic 152 mmHg BP Diastolic 86 mmHg Respiratory Rate 18 /min Height 71.25 inches 5'11.25" Results Test Date Facility Test Result H/L Range Note Hemoglobin A1c 04/20/2018 [facility] Glycohemoglobin 5.8 % N 4.2-6.3 1, 2 (315)- - (A1c) eAG 120 mg/dL Basic ([facility]) 04/20/2018 [facility] Glucose 96 mg/dL N 74 -106 (315)- - BUN 26 mg/dL High 7-18 Creatinine 1.0 mg/dL N 0.6-1.3 Glom Filtration Rate, Estimate >60 mL/min >60 If >60 mL/min >60 3 BUN/Creat 26.0 ratio Sodium 140 mmol/L N 136-145 Potassium 4.0 mmol/L N 3.5-5.1 Chloride 105 mmol/L N 98-107 Carbon Dioxide 30 mmol/L N 21-32 Anion Gap 5 mEq/L Low 8-16 Calcium 8.7 mg/dL N 8.5-10.1 Laboratory test 04/20/2018 [facility] Prostate 0.40 ng/ mL < 4.0 4 finding (315)- - Specific Antigen Liver Function 04/20/2018 [facility] Total Protein 7.1 g/ dL N 6.4-8.2 Tests (315)- - Albumin 3.6 g/dL N 3.4-5.0 Globulin 3.5 g/dL N 1.9-4.3 Alb/Glob 1.0 ratio Bilirubin,Total 0.4 mg/dL N 0.2-1.0 Bilirubin,Direct 0.1 mg/dL N 0.0-0.2 Bilirubin,Indirect 0.3 mg/dL N 0.0-0.9 Sgot/Ast 30 U/L N 15-37 SGPT/Alt 33 U/L N 12-78 Alkaline Phosphatase 77 U/L N 45-117 LDL Cholesterol 04/20/2018 [facility] Cholesterol 205 mg/ dL High <200 5 Profile (315)- - Triglycerides 65 mg/dL <150 6 HDL Cholesterol 65 mg/dL >40 7 LDL-Cholesterol 127 mg/dL < 100 8 Laboratory test 02/21/2018 [facility] Urn Culture Hold URINE SPECIMEN A 9 finding <SEE NOTE> Urinalysis 02/21/2018 [facility] Color YELLOW Appearance CLEAR Spec Grav Urine 1.014 (1.003-1.030) PH Urine 6.0 (5.0-7.5) Leuk Esterase NEGATIVE (Neg) Nitrite Urine NEGATIVE (Neg) Protein Urine NEGATIVE (Neg) Glucose Urine NEGATIVE (Neg) Ketone Urine NEGATIVE (Neg) Urobilinogen 0.2 mg/dL (0-1.0) Bilirubin Urine NEGATIVE (Neg) Blood/HGB Urine NEGATIVE (Neg) 10 CBC With Diff 02/21/2018 [facility] WBC 9.6 10*3/uL (4.1-11.0) RBC 5.61 10*6/uL (4.60-6.10) HGB 16.5 g/dL (13.5-18.0) HCT 49.5 % (41.0-53.0) MCV 88.1 fL (80.0-95.0) MCH 29.4 pg (27.0-32.0) MCHC 33.3 g/dL (32.0-36.0) RDW 13.8 % (10.5-14.5) PLT 154 10*3/uL (150-450) MPV 9.3 fL (7.1-10.7) Neut % 83.4 % High (35.0-75.0) Lymph % 9.4 % Low (16.0-52.0) [place] % 5.9 % (0.0-8.0) Eos % 0.9 % (0.0-5.0) Baso % 0.4 % (0.0-4.0) Neut # 8.0 10*3/uL High (1.8-7.7) Lymph # 0.9 10*3/uL Low (1.2-4.8) [place] # 0.6 10*3/uL (0.0-0.8) Eos # 0.1 10*3/uL (0.0-0.5) Baso # 0.0 10*3/uL (0.0-0.2) 11 CMP 02/21/2018 [facility] Sodium 141 mmol/L (136-145) Potassium 3.9 mmol/L (3.6-5.2) Chloride 106 mmol/L (100-108) Co2 28 mmol/L (22-31) Anion Gap 7 mmol/L (7-16) Urea Nitrogen 24 mg/dL (7-24) Creatinine 1.10 mg/dL (0.80-1.30) BUN/Creat Ratio 21.8 RATIO High (10.0-20.0) Glucose 114 mg/dL High (70-99) Calcium 9.4 mg/dL (8.4-10.2) Total Protein 7.3 g/dL (6.4-8.2) Albumin 3.5 g/dL (3.2-4.5) Globulin 3.8 g/dL (2.7-4.3) Alb/Glob Ratio 0.9 RATIO Alkaline Phosphatase 77 U/L (45-117) Bilirubin,Total 0.4 mg/dL (0.0-1.0) Ast (Sgot) 38 U/L (11-39) Alt (SGPT) 37 U/L (12-78) GFR >60 ml/min/1.73m2 (>59) GFR ( Amer) >60 ml/min/1.73m2 (>59) GFR Interpretation (SEE NOTE) 12 Laboratory test finding 02/21/2018 [facility] Magnesium 2.2 mg/dL (1.7-2.4 ) 13 NT Pro BNP 13 pg/mL (0-125) 14 TSH,Ultrasensitive 2.881 mIU/L (0.360-4.170) 15 Laboratory test 02/21/2018 [facility] Poc Troponin I <0.02 (0.00-0.10) 16 finding ng/mL Laboratory test 09/04/2017 [facility] Prostate 0.58 < 4.0 17, 18 finding (315)- - Specific ng/mL Antigen Lipid 09/04/2017 [facility] Cholesterol 170 mg/dL < 200 19 (315)- - Triglycerides 43 mg/dL <150 20 HDL Cholesterol 66 mg/dL >40 21 LDL-Cholesterol 95 mg/dL < 100 22 Hemoglobin A1c 09/04/[address] [facility] Glycohemoglobin (A1c ) 5.9 % N 4.2-6.3 23 (315)- - eAG 123 mg/dL Comprehensive 09/04/[address] [facility] Glucose 105 mg/dL N 74-106 Metabolic-RL (315)- - BUN 27 mg/dL High 7-18 Creatinine 0.9 mg/dL N 0.6-1.3 Glom Filtration Rate, Estimate >60 mL/min >60 If >60 mL/min >60 24 BUN/Creat 30.0 ratio Sodium 140 mmol/L N 136-145 Potassium 4.0 mmol/L N 3.5-5.1 Chloride 107 mmol/L N 98-107 Carbon Dioxide 31 mmol/L N 21-32 Anion Gap 2 mEq/L Low 8-16 Calcium 8.8 mg/dL N 8.5-10.1 Total Protein 6.7 g/dL N 6.4-8.2 Albumin 3.5 g/dL N 3.4-5.0 Globulin 3.2 g/dL N 1.9-4.3 Alb/Glob 1.1 ratio Bilirubin,Total 0.5 mg/dL N 0.2-1.0 Sgot/Ast 23 U/L N 15-37 SGPT/Alt 27 U/L N 12-78 Alkaline Phosphatase 74 U/L N 45-117 Hemoglobin A1c 05/28/2017 [place] Hemoglobin A1c 5.9 % 4.1-5.9 Estimated Average Glucose Calc 123 mg/dL 71-140 Basic (BMP) 05/28/2017 [place] Sodium 140 mmol/L 135-146 25 Potassium 4.1 mmol/L 3.5-5.2 Chloride# 102 mmol/L 97-110 26 Carbon Dioxide 30 mmol/L 24-34 Glucose 85 mg/dL 70-105 Creatinine 1.0 mg/dL 0.5-1.4 Calcium 9.8 mg/dL 8.5-10.2 Non Shanell Egfr >60 >60 27 Shanell Egfr >60 >60 28 Anion Gap 8 mmol/L 7-16 29 BUN 25 mg/dL 6-26 Lipid Treatment 05/28/2017 [facility] Cholesterol 231 mg/dL High 50-199 Triglycerides 75 mg/dL 30-200 HDL 75 mg/dL High 29-71 30 Chol/ HDL Ratio 3.1 ratio Low 4.0-6.7 VLDL 15 mg/dL 2-29 LDL (Calc) 141 mg/dL High 20-99 31 Alt 25 U/L 3-42 Ast 25 U/L 8-42 Hemoglobin A1c 02/19/2017 [facility] Hemoglobin A1c 6.0 % High 4.1-5.9 32 Estimated Average Glucose Calc 126 71-140 Laboratory test finding 02/19/2017 [facility] TSH 3.44 uIU/mL 0.35-4.94 Comprehensive Met Panel-FCMG 02/19/2017 [facility] Sodium 141 mmol/L 135- 146 33 Potassium 3.8 mmol/L 3.5-5.2 Chloride# 102 mmol/L 97-110 34 Carbon Dioxide 30 mmol/L 24-34 Glucose 106 mg/dL High 70-105 BUN 24 mg/dL 6-26 Creatinine 1.1 mg/dL 0.5-1.4 Calcium 9.6 mg/dL 8.5-10.2 Total Protein 6.5 g/dL 6.0-8.0 Albumin 4.2 g/dL 3.6-4.9 Globulin 2.3 g/dL 2.0-3.5 A/G Ratio 1.8 Ratio 1.0-2.2 Total Bilirubin 0.6 mg/dL 0.1-1.3 Alkaline Phosphatase 65 U/L 24-140 Alt 32 U/L 3-42 Ast 23 U/L 8-42 Shanell Egfr >60 >60 35 Non Shanell Egfr >60 >60 36 Anion Gap 9 mmol/L 7-16 37 Hemoglobin A1c 11/02/2016 [facility] Hemoglobin A1c 5.7 % 4.1-5.9 38 Estimated Average Glucose Calc 117 71-140 Basic (BMP) 11/02/2016 [facility] Sodium 140 mmol/L 135-146 39 Potassium 4.1 mmol/L 3.5-5.2 Chloride# 105 mmol/L 97-110 40 Carbon Dioxide 27 mmol/L 24-34 Glucose 106 mg/dL High 70-105 BUN 27 mg/dL High 6-26 Creatinine 1.0 mg/dL 0.5-1.4 Calcium 9.6 mg/dL 8.5-10.2 Non Shanell Egfr >60 >60 41 Shanell Egfr >60 >60 42 Anion Gap 12 mmol/L 7-16 43 Laboratory test 11/02/2016 [facility] Hepatitis C Virus NONREACTIVE Nonreactive finding Antibody Lipid Treatment 11/02/2016 [facility] Cholesterol 204 mg/dL High 50-199 Triglycerides 53 mg/dL 30-200 HDL 63 mg/dL 29-71 44 Chol/ HDL Ratio 3.2 ratio Low 4.0-6.7 VLDL 11 mg/dL 2-29 LDL (Calc) 130 mg/dL High 20-99 45 Alt 21 U/L 3-42 Ast 24 U/L 8-42 Comprehensive Metabolic (CMP) 07/30/2016 [facility] Sodium 142 mmol/L 135- 146 46, 47 Potassium 3.9 mmol/L 3.5-5.2 Chloride# 106 mmol/L 97-110 48 Carbon Dioxide 29 mmol/L 24-34 Glucose 91 mg/dL 70-105 BUN 23 mg/dL 6-26 Creatinine 1.0 mg/dL 0.5-1.4 Calcium 9.4 mg/dL 8.5-10.2 Total Protein 6.1 g/dL 6.0-8.0 Albumin 4.1 g/dL 3.6-4.9 Globulin 2.0 g/dL 2.0-3.5 A/G Ratio 2.1 Ratio 1.0-2.2 Total Bilirubin 0.5 mg/dL 0.1-1.3 Alkaline Phosphatase 61 U/L 24-140 Alt 22 U/L 3-42 Ast 23 U/L 8-42 Shanell Egfr >60 >60 49 Non Shanell Egfr >60 >60 50 Anion Gap 11 mmol/L 7-16 51 Laboratory test finding 07/30/2016 [facility] Hemoglobin A1c 5.8 % 4.1-5.9 Esr 3 mm/hr 0-15 CBC With Auto Diff 07/30/2016 [facility] WBC 7.3 K/uL 4.1-11.0 RBC 5.46 M/uL 4.60-6.10 Hemoglobin 16.3 gm/dL 13.5-18.0 Hematocrit 48.9 % 41.0-53.0 MCV 89.6 fL 80.0-97.0 MCH 29.9 pg 27.0-32.0 MCHC 33.3 g/dL 32.0-36.0 RDW 13.6 % 11.5-14.5 PLT Count 161 K/ul 140-400 Neutrophil 65.9 % 35.0-75.0 Lymphocyte 24.5 % 16.0-52.0 Monocyte 7.1 % 2.0-10.0 Eosinophil 2.0 % 0.0-5.0 Basophil 0.5 % 0.0-4.0 Abs Neutrophils 4.8 K/uL 2.1-8.0 Abs Lymphocytes 1.8 K/uL 0.8-5.5 Abs Monocytes 0.5 K/uL 0.1-1.0 Abs Eosinophils 0.1 K/uL 0.0-0.5 Abs Basophils 0.0 K/uL 0.0-0.3 Laboratory test finding 07/30/2016 [facility] TSH 4.34 uIU/mL 0.35-4.94 PSA 0.380 ng/mL 0.000-4.000 52 Lipid 07/30/2016 [facility] Cholesterol 199 mg/dL 50-199 Triglycerides 55 mg/dL 30-200 HDL 75 mg/dL High 29-71 53 Chol/ HDL Ratio 2.6 ratio Low 4.0-6.7 VLDL 11 mg/dL 2-29 LDL (Calc) 113 mg/dL High 20-99 54 Laboratory test finding 04/15/2016 [facility] Esr 2 mm/hr 0-15 TSH 4.03 uIU/mL 0.35-4.94 Comprehensive Metabolic (CMP) 04/15/2016 [facility] Sodium 137 mmol/L 134- 142 Potassium 4.5 mmol/L 3.5-5.2 Chloride 105 mmol/L 97-109 Carbon Dioxide 30 mmol/L 24-34 Glucose 87 mg/dL 70-105 BUN 31 mg/dL High 6-26 Creatinine 0.8 mg/dL 0.5-1.4 Calcium 9.5 mg/dL 8.5-10.2 Total Protein 6.2 g/dL 6.0-8.0 Albumin 4.1 g/dL 3.6-4.9 Globulin 2.1 g/dL 2.0-3.5 A/G Ratio 2.0 Ratio 1.0-2.2 Total Bilirubin 0.7 mg/dL 0.1-1.3 Alkaline Phosphatase 57 U/L 24-140 Alt 28 U/L 3-42 Ast 36 U/L 8-42 Anion Gap 7 mmol/L 6-14 Shanell Egfr >60 >60 55 Non Shanell Egfr >60 >60 56 CBC With Auto Diff 04/15/2016 [facility] WBC 6.4 K/uL 4.1-11.0 RBC 5.11 M/uL 4.60-6.10 Hemoglobin 15.5 gm/dL 13.5-18.0 Hematocrit 45.3 % 41.0-53.0 MCV 88.6 fL 80.0-97.0 MCH 30.2 pg 27.0-32.0 MCHC 34.1 g/dL 32.0-36.0 RDW 13.8 % 11.5-14.5 PLT Count 159 K/ul 140-400 Neutrophil 66.6 % 35.0-75.0 Lymphocyte 20.5 % 16.0-52.0 Monocyte 9.5 % 2.0-10.0 Eosinophil 2.6 % 0.0-5.0 Basophil 0.8 % 0.0-4.0 Abs Neutrophils 4.3 K/uL 2.1-8.0 Abs Lymphocytes 1.3 K/uL 0.8-5.5 Abs Monocytes 0.6 K/uL 0.1-1.0 Abs Eosinophils 0.2 K/uL 0.0-0.5 Abs Basophils 0.1 K/uL 0.0-0.3 Basic (BMP) 01/30/2016 [facility] Sodium 139 mmol/L 134-142 57 Potassium 4.3 mmol/L 3.5-5.2 Chloride 103 mmol/L 97-109 Carbon Dioxide 30 mmol/L 24-34 Glucose 96 mg/dL 70-105 BUN 29 mg/dL High 6-26 Creatinine 1.0 mg/dL 0.5-1.4 Calcium 9.9 mg/dL 8.5-10.2 Anion Gap 10 mmol/L 6-14 Non Shanell Egfr >60 >60 58 Shanell Egfr >60 >60 59 Laboratory test 01/30/2016 [facility] Hemoglobin A1c 5.6 % 4.1-5.9 finding Hemoglobin A1c 07/27/2015 [facility] Glycohemoglobin (A1c ) 6.1 % 4.2-6.3 60 (315)- - eAG 128 mg/dL Laboratory test 07/27/2015 [facility] Prostate 0.35 ng/ mL 61 finding (315)- - Specific Antigen Basic Metabolic 07/27/2015 [facility] Glucose 112 mg/dL High 74-106 Panel (315)- - BUN 20 mg/dL High 7-18 Creatinine 1.0 mg/dL 0.6-1.3 Glom Filtration Rate, Estimate >60 mL/min >60 If >60 mL/min >60 62 BUN/Creat 20.0 ratio Sodium 140 mmol/L 136-145 Potassium 4.2 mmol/L 3.5-5.1 Chloride 106 mmol/L 98-107 Carbon Dioxide 29 mmol/L 21-32 Anion Gap 5 mEq/L Low 8-16 Calcium 8.6 mg/dL 8.5-10.1 BMP (Basic) 05/06/2015 [facility] Glucose 93 mg/dL 74- 106 (315)- - BUN 26 mg/dL High 7-18 Creatinine 0.9 mg/dL 0.6-1.3 Glom Filtration Rate, Estimate >60 mL/min >60 If >60 mL/min >60 63 BUN/Creat 28.8 ratio Sodium 139 mmol/L 136-145 Potassium 3.6 mmol/L 3.5-5.1 Chloride 104 mmol/L 98-107 Carbon Dioxide 28 mmol/L 21-32 Anion Gap 7 mEq/L Low 8-16 Calcium 9.5 mg/dL 8.5-10.1 Glycohemoglobin A1c 05/06/2015 [facility] Glycohemoglobin 5.8 % 4.2-6.3 64 (315)- - (A1c) eAG 120 mg/dL Laboratory test 05/06/2015 [facility] Prostate 1.00 ng/ mL 65 finding (315)- - Specific Antigen Basic Metabolic 11/15/2014 [facility] Glucose 97 mg/dL 74-106 Panel (315)- - BUN 28 mg/dL High 7-18 Creatinine 1.0 mg/dL 0.6-1.3 Glom Filtration Rate, Estimate >60 mL/min >60 If >60 mL/min >60 66 BUN/Creat 28.0 ratio Sodium 139 mmol/L 136-145 Potassium 3.9 mmol/L 3.5-5.1 Chloride 104 mmol/L 98-107 Carbon Dioxide 30 mmol/L 21-32 Anion Gap 5 mEq/L Low 8-16 Calcium 9.1 mg/dL 8.5-10.1 Glycohemoglobin A1c 11/15/2014 [facility] Glycohemoglobin 5.5 % 4.2-6.3 67 (315)- - (A1c) eAG 111 mg/dL CBC W/Automated Diff 10/02/[address] [facility] White Blood 6.2 K/uL 3.4-10.5 (315)- - Count Red Blood Count 4.63 M/uL 4.20-5.80 Hemoglobin 13.8 gm/dL 12.8-17.0 Hematocrit 41.3 % 38.0-48.0 Mean Cell Volume 89.2 fl 80.0-96.0 Mean Corpuscular HGB 29.8 pg 27.0-33.0 Mean Corpuscular HGB Conc 33.4 g/dL 31.7-36.0 Platelet Count 222 K/uL 150-400 Red Cell Distri Width SD 44.4 fl 36-51 Red Cell Distri Width %CV 14.1 % 11.6-15.8 Mean Platelet Volume 10.8 fL High 6.6-10.6 Neut% 71.4 % 33.0-73.0 Lymph % 18.0 % 17.0-56.0 [place] % 7.8 % 0.0-10.0 Eo% 2.1 % 0.0-5.0 Bas% 0.7 % 0.1-1.0 Neut# 4.39 K/uL 1.8-7.0 Lymph # 1.11 K/uL Low 1.8-7.0 [place] # 0.48 K/uL 0.0-0.8 Eos # 0.13 K/uL 0.0-0.5 Baso # 0.04 K/uL Low 0.1-0.2 Comprehensive Metabolic 09/25/2014 [facility] Glucose 138 mg/dL High 74-106 Panel (315)- - BUN 19 mg/dL High 7-18 Creatinine 1.1 mg/dL 0.6-1.3 Glom Filtration Rate, Estimate >60 mL/min >60 If >60 mL/min >60 68 BUN/Creat 17.2 ratio Sodium 143 mmol/L 136-145 Potassium 3.6 mmol/L 3.5-5.1 Chloride 108 mmol/L High 98-107 Carbon Dioxide 29 mmol/L 21-32 Anion Gap 6 mEq/L Low 8-16 Calcium 8.8 mg/dL 8.5-10.1 Total Protein 6.7 g/dL 6.4-8.2 Albumin 3.8 g/dL 3.4-5.0 Globulin 2.9 g/dL 1.9-4.3 Alb/Glob 1.3 ratio Bilirubin,Total 0.4 mg/dL 0.2-1.0 Sgot/Ast 23 U/L 15-37 SGPT/Alt 41 U/L 12-78 Alkaline Phosphatase 67 U/L 45-117 Laboratory test 09/25/2014 [facility] Lipase 94 U/L 73 -393 finding (315)- - CBC 09/25/[address] [facility] White Blood 17.2 K/uL High 3.4-10.5 (315)- - Count Red Blood Count 4.78 M/uL 4.20-5.80 Hemoglobin 14.3 gm/dL 12.8-17.0 Hematocrit 42.4 % 38.0-48.0 Mean Cell Volume 88.7 fl 80.0-96.0 Mean Corpuscular HGB 29.9 pg 27.0-33.0 Mean Corpuscular HGB Conc 33.7 g/dL 31.7-36.0 Platelet Count 256 K/uL 150-400 Red Cell Distri Width %CV 14.1 % 11.6-15.8 Mean Platelet Volume 10.8 fL High 6.6-10.6 Laboratory test 09/25/2014 N2N/CCD Import Alanine Aminotransferase 41 12 -78 finding (Alt/SGPT) Albumin/Globulin Ratio 1.3 Aspartate Amino Transf (Ast/Sgot) 23 15-37 BUN/Creatinine Ratio 17.2 Calcium Level 8.8 8.5-10.1 Carbon Dioxide Level 29 21-32 Chloride Level 108 High 98-107 Mean Corpuscular Hemoglobin 29.9 27.0-33.0 Mean Corpuscular Hemoglobin Concent 33.7 31.7-36.0 Mean Corpuscular Volume 88.7 80.0-96.0 RDW Coefficient of Variation 14.1 11.6-15.8 Sodium Level 143 136-145 Total Bilirubin 0.4 0.2-1.0 Laboratory test finding 09/21/2014 N2N/CCD Import Atypical Lymphocytes % 4 0-7 Band Neutrophils % 1 0-8 Basophils % 3 High 0-2 Differential Total Cells Counted 100 Eosinophils % 1 0-5 Hematocrit 40.5 38.0-48.0 Hemoglobin 13.7 12.8-17.0 Lymphocytes % 17 17-56 Mean Corpuscular Hemoglobin 30.4 27.0-33.0 Mean Corpuscular Hemoglobin Concent 33.8 31.7-36.0 Mean Corpuscular Volume 89.8 80.0-96.0 Mean Platelet Volume 10.6 6.6-10.6 Monocytes % 7 0-10 Neutrophils % 67 33-73 Normal RBC Morphology Normal Platelet Count 228 150-400 Platelet Estimate Normal RDW Coefficient of Variation 13.7 11.6-15.8 Red Blood Count 4.51 4.20-5.80 White Blood Count 8.0 3.4-10.5 Basic Metabolic Panel 09/17/2014 [facility] Glucose 100 mg/dL 74-106 (315)- - BUN 16 mg/dL 7-18 Creatinine 1.0 mg/dL 0.6-1.3 Glom Filtration Rate, Estimate >60 mL/min >60 If >60 mL/min >60 69 BUN/Creat 16.0 ratio Sodium 142 mmol/L 136-145 Potassium 3.6 mmol/L 3.5-5.1 Chloride 107 mmol/L 98-107 Carbon Dioxide 27 mmol/L 21-32 Anion Gap 8 mEq/L 8-16 Calcium 8.6 mg/dL 8.5-10.1 Laboratory test finding 09/17/2014 N2N/CCD Import BUN/Creatinine Ratio 16.0 Calcium Level 8.6 8.5-10.1 Carbon Dioxide Level 27 21-32 Chloride Level 107 98-107 Sodium Level 142 136-145 CBC 09/17/2014 [facility] White Blood Count 8.5 K/uL 3.4-10.5 (315)- - Red Blood Count 4.36 M/uL 4.20-5.80 Hemoglobin 13.2 gm/dL 12.8-17.0 Hematocrit 39.2 % 38.0-48.0 Mean Cell Volume 89.9 fl 80.0-96.0 Mean Corpuscular HGB 30.3 pg 27.0-33.0 Mean Corpuscular HGB Conc 33.7 g/dL 31.7-36.0 Platelet Count 184 K/uL 150-400 Red Cell Distri Width %CV 13.9 % 11.6-15.8 Mean Platelet Volume 11.2 fL High 6.6-10.6 Laboratory test 09/17/2014 N2N/CCD Import Mean Corpuscular 30.3 27.0- 33.0 finding Hemoglobin Mean Corpuscular Hemoglobin Concent 33.7 31.7-36.0 Mean Corpuscular Volume 89.9 80.0-96.0 RDW Coefficient of Variation 13.9 11.6-15.8 Basic Metabolic Panel 09/17/2014 [facility] Glucose 120 mg/dL High 74-106 (315)- - BUN 17 mg/dL 7-18 Creatinine 0.8 mg/dL 0.6-1.3 Glom Filtration Rate, Estimate >60 mL/min >60 If >60 mL/min >60 70 BUN/Creat 21.2 ratio Sodium 141 mmol/L 136-145 Potassium 3.6 mmol/L 3.5-5.1 Chloride 108 mmol/L High 98-107 Carbon Dioxide 26 mmol/L 21-32 Anion Gap 7 mEq/L Low 8-16 Calcium 8.4 mg/dL Low 8.5-10.1 CBC 09/17/2014 [facility] White Blood Count 9.1 K/uL 3.4-10.5 (315)- - Red Blood Count 4.30 M/uL 4.20-5.80 Hemoglobin 12.7 gm/dL Low 12.8-17.0 Hematocrit 38.0 % 38.0-48.0 Mean Cell Volume 88.4 fl 80.0-96.0 Mean Corpuscular HGB 29.5 pg 27.0-33.0 Mean Corpuscular HGB Conc 33.4 g/dL 31.7-36.0 Platelet Count 159 K/uL 150-400 Red Cell Distri Width %CV 13.6 % 11.6-15.8 Mean Platelet Volume 11.3 fL High 6.6-10.6 Hemoglobin/Hematocrit 09/16/2014 [facility] Hemoglobin 13.2 gm/dL 12.8-17.0 (315)- - Hematocrit 39.6 % 38.0-48.0 CBC W/Automated Diff 09/16/2014 [facility] White Blood 9.9 K/uL 3.4-10.5 (315)- - Count Red Blood Count 4.61 M/uL 4.20-5.80 Hemoglobin 13.5 gm/dL 12.8-17.0 Hematocrit 40.3 % 38.0-48.0 Mean Cell Volume 87.4 fl 80.0-96.0 Mean Corpuscular HGB 29.3 pg 27.0-33.0 Mean Corpuscular HGB Conc 33.5 g/dL 31.7-36.0 Platelet Count 177 K/uL 150-400 Red Cell Distri Width SD 42.2 fl 36-51 Red Cell Distri Width %CV 13.6 % 11.6-15.8 Mean Platelet Volume 10.6 fL 6.6-10.6 Neut% 85.4 % High 33.0-73.0 Lymph % 9.8 % Low 17.0-56.0 [place] % 4.4 % 0.0-10.0 Eo% 0.2 % 0.0-5.0 Bas% 0.2 % 0.1-1.0 Neut# 8.48 K/uL High 1.8-7.0 Lymph # 0.97 K/uL Low 1.8-7.0 [place] # 0.44 K/uL 0.0-0.8 Eos # 0.02 K/uL 0.0-0.5 Baso # 0.02 K/uL Low 0.1-0.2 Laboratory test 09/16/2014 N2N/CCD Import Basophils # (Auto) 0.02 Low 0.1 -0.2 finding Basophils (%) (Auto) 0.2 0.1-1.0 Eosinophils # (Auto) 0.02 0.0-0.5 Eosinophils (%) (Auto) 0.2 0.0-5.0 Lymphocytes # (Auto) 0.97 Low 1.8-7.0 Lymphocytes (%) (Auto) 9.8 Low 17.0-56.0 Monocytes # (Auto) 0.44 0.0-0.8 Monocytes (%) (Auto) 4.4 0.0-10.0 Neutrophils # (Auto) 8.48 High 1.8-7.0 Neutrophils (%) (Auto) 85.4 High 33.0-73.0 Red Cell Distribution Width 42.2 36-51 Laboratory test 09/16/2014 N2N/CCD Import Alanine Aminotransferase 27 12 -78 finding (Alt/SGPT) Albumin/Globulin Ratio 1.2 Aspartate Amino Transf (Ast/Sgot) 27 15-37 Direct Bilirubin 0.1 0.0-0.2 Indirect Bilirubin 0.2 0.0-0.9 Inr International Normalized Ratio 1.0 0.9-1.1 Prothrombin Time 12.8 12.0-14.4 Stool Occult Blood Positive High Negative Total Bilirubin 0.3 0.2-1.0 Protime 09/16/[address] [facility] Protime 12.8 seconds 12.0-14.4 (315)- - Inr 1.0 0.9-1.1 71 Hemoglobin/Hematocrit 09/16/[address] [facility] Hemoglobin 14.8 gm/dL 12.8-17.0 (315)- - Hematocrit 43.4 % 38.0-48.0 Occult 09/16/[address] [facility] Stool Occult POSITIVE High Negative Blood,Stool (315)- - Blood-Single Spec Liver Function 09/16/[address] [facility] Total Protein 6.9 g/ dL 6.4-8.2 Tests (315)- - Albumin 3.7 g/dL 3.4-5.0 Globulin 3.2 g/dL 1.9-4.3 Alb/Glob 1.2 ratio Bilirubin,Total 0.3 mg/dL 0.2-1.0 Bilirubin,Direct 0.1 mg/dL 0.0-0.2 Bilirubin,Indirect 0.2 mg/dL 0.0-0.9 Sgot/Ast 27 U/L 15-37 SGPT/Alt 27 U/L 12-78 Alkaline Phosphatase 81 U/L 45-117 Basic Metabolic Panel 09/16/[address] [facility] Glucose 101 mg/dL 74-106 (315)- - BUN 32 mg/dL High 7-18 Creatinine 1.0 mg/dL 0.6-1.3 Glom Filtration Rate, Estimate >60 mL/min >60 If >60 mL/min >60 72 BUN/Creat 32.0 ratio Sodium 138 mmol/L 136-145 Potassium 3.7 mmol/L 3.5-5.1 Chloride 105 mmol/L 98-107 Carbon Dioxide 25 mmol/L 21-32 Anion Gap 8 mEq/L 8-16 Calcium 9.0 mg/dL 8.5-10.1 Laboratory test 09/16/2014 [facility] Lipase 127 U/L 73-393 finding (315)- - CBC W/Automated 09/16/[address] [facility] White Blood 9.5 K/ uL 3.4-10.5 Diff (315)- - Count Red Blood Count 5.35 M/uL 4.20-5.80 Hemoglobin 15.8 gm/dL 12.8-17.0 Hematocrit 46.6 % 38.0-48.0 Mean Cell Volume 87.1 fl 80.0-96.0 Mean Corpuscular HGB 29.5 pg 27.0-33.0 Mean Corpuscular HGB Conc 33.9 g/dL 31.7-36.0 Platelet Count 172 K/uL 150-400 Red Cell Distri Width SD 42.9 fl 36-51 Red Cell Distri Width %CV 13.6 % 11.6-15.8 Mean Platelet Volume 11.2 fL High 6.6-10.6 Neut% 72.4 % 33.0-73.0 Lymph % 17.8 % 17.0-56.0 [place] % 7.1 % 0.0-10.0 Eo% 2.3 % 0.0-5.0 Bas% 0.4 % 0.1-1.0 Neut# 6.86 K/uL 1.8-7.0 Lymph # 1.69 K/uL Low 1.8-7.0 [place] # 0.67 K/uL 0.0-0.8 Eos # 0.22 K/uL 0.0-0.5 Baso # 0.04 K/uL Low 0.1-0.2 Type And Screen 09/16/2014 [facility] Patient Blood Type O POS (315)- - Antibody Screen Negative Negative Laboratory test 09/16/[address] [facility] Crossmatch See Note 73 finding (315)- - Hemoglobin/Hematocr 09/16/2014 [facility] Hemoglobin 14.1 gm/dL 12.8-17.0 it (315)- - Hematocrit 41.6 % 38.0-48.0 LDL Cholesterol Profile 03/19/2014 N2N/CCD Import Cholesterol 183 mg/dL 74 HDL Cholesterol 58 mg/dL 75 LDL-Cholesterol 110 mg/dL 76 Triglycerides 77 mg/dL 77 Laboratory test finding 03/19/2014 N2N/CCD Import Anion Gap 11 mEq/L 8- 16 BUN 28 mg/dL High 7-18 BUN/Creat 25.4 ratio Calcium 9.4 mg/dL 8.5-10.1 Carbon Dioxide 27 mmol/L 21-32 Chloride 107 mmol/L 98-107 Creatinine 1.1 mg/dL 0.6-1.3 Glom Filtration Rate, Estimate >60 mL/min >60 Glucose 103 mg/dL 74-106 Glycohemoglobin (A1c) 5.7 % 4.2-6.3 78 Hematocrit 47.0 % 38.0-48.0 Hemoglobin 16.0 gm/dL 12.8-17.0 If >60 mL/min >60 79 Mean Cell Volume 88.3 fl 80.0-96.0 Mean Corpuscular HGB 30.1 pg 27.0-33.0 Mean Corpuscular HGB Conc 34.0 g/dL 31.7-36.0 Mean Platelet Volume 11.3 fL High 6.6-10.6 Platelet Count 152 K/uL 150-400 Potassium 3.7 mmol/L 3.5-5.1 Prostate Specific Antigen 0.41 ng/mL 80 Red Blood Count 5.32 M/uL 4.20-5.80 Red Cell Distri Width %CV 13.3 % 11.6-15.8 Sodium 141 mmol/L 136-145 White Blood Count 6.3 K/uL 3.4-10.5 eAG 117 mg/dL Laboratory test finding 10/05/2013 N2N/CCD Import % A1c 5.8 % 4.1-6.5 BUN 24.0 mg/dL High 9.0-21.0 BUN/Creat Ratio 21.8 ratio High 12.0-20.0 Calcium 9.6 mg/dL 8.7-10.5 Chloride 108.0 mmol/L High 98.0-107.0 Co2 25.0 mmol/L 22.0-30.0 Creatinine-Serum 1.1 mg/dL 0.8-1.5 Glucose 104.0 mg/dL 75.0-110.0 Potasium 4.3 mmol/L 3.6-5.0 Sodium 142.0 mmil/L 137.0-145.0 eGFR 72.6 Laboratory test finding 04/26/2013 N2N/CCD Import % A1c 5.6 % 4.1-6.5 BUN 24.0 mg/dL High 9.0-21.0 BUN/Creat Ratio 24.0 ratio High 12.0-20.0 Calcium 9.8 mg/dL 8.7-10.5 Chloride 107.0 mmol/L 98.0-107.0 Co2 27.0 mmol/L 22.0-30.0 Creatinine-Serum 1.0 mg/dL 0.8-1.5 Esr Sedrate 2.0 sec 0.0-20.0 Glucose 98.0 mg/dL 75.0-110.0 PSA 0.3 ng/mL 0.0-4.0 Potasium 4.0 mmol/L 3.6-5.0 Sodium 140.0 mmil/L 137.0-145.0 TSH 4.66 uIU/ml 0.50-6.00 eGFR 81.0 Laboratory test 04/09/2013 N2N/CCD Import Troponin-I < 0.02 ng/mL 0.00- 0.50 81 finding Laboratory test 04/09/2013 N2N/CCD Import Troponin-I < 0.02 ng/mL 0.00- 0.50 82 finding Laboratory test 04/08/2013 N2N/CCD Import Alb/Glob 1.2 ratio finding Albumin 4.0 g/dL 3.5-5.0 Alkaline Phosphatase 73 U/L 50-136 Anion Gap 11 mEq/L 8-16 BUN 23 mg/dL 5-23 BUN/Creat 23.0 ratio Bilirubin,Total 0.3 mg/dL 0.2-1.2 CK 263 U/L High 26-190 CK-MB (Mass) 5.8 ng/mL 0.5-8.2 Calcium 9.3 mg/dL 8.5-10.1 Carbon Dioxide 27 mEq/L 18-29 Chloride 106 mmol/L 98-107 Creatinine 1.0 mg/dL 0.5-1.4 Globulin 3.3 g/dL 1.9-4.3 Glom Filtration Rate, Estimate >60 mL/min >60 Glucose 92 mg/dL 76-115 If >60 mL/min >60 83 Potassium 3.8 mmol/L 3.5-5.1 Relative % Index 2.2 % <5 84 SGPT/Alt 40 U/L 30-65 Sgot/Ast 28 U/L 16-40 Sodium 140 mmol/L 136-145 Total Protein 7.3 g/dL 6.3-8.0 Troponin-I < 0.02 ng/mL 0.00-0.50 85 CBS W/Automated Diff 04/08/2013 N2N/CCD Import Bas% 0.7 % 0.1-1.0 Baso # 0.06 K/uL Low 0.1-0.2 Eo% 3.4 % 0.0-5.0 Eos # 0.31 K/uL 0.0-0.5 Hematocrit 49.4 % High 38.0-48.0 Hemoglobin 16.6 gm/dL 12.8-17.0 Lymph # 1.57 K/uL 1.2-4.0 Lymph % 17.3 % 17.0-56.0 Mean Cell Volume 88.2 fl 80.0-96.0 Mean Corpuscular HGB 29.6 pg 27.0-33.0 Mean Corpuscular HGB Conc 33.6 g/dL 31.7-36.0 Mean Platelet Volume 11.6 fL High 6.6-10.6 [place] # 0.63 K/uL High 0.0-0.6 [place] % 6.9 % 0.0-10.0 Neut# 6.53 K/uL 1.8-7.0 Neut% 71.7 % 33.0-73.0 Platelet Count 115 K/uL Low 150-400 Red Blood Count 5.60 M/uL 4.20-5.80 Red Cell Distri Width %CV 13.6 % 11.6-15.8 Red Cell Distri Width SD 43.6 fl 36-51 White Blood Count 9.1 K/uL 3.4-10.5 Laboratory test finding 02/26/2013 N2N/CCD Import Alb/Glob 1.2 ratio Albumin 4.0 g/dL 3.5-5.0 Alkaline Phosphatase 88 U/L 50-136 Anion Gap 11 mEq/L 8-16 BUN 21 mg/dL 5-23 BUN/Creat 19.0 ratio Bilirubin,Total 0.3 mg/dL 0.2-1.2 Calcium 9.6 mg/dL 8.5-10.1 Carbon Dioxide 29 mEq/L 18-29 Chloride 105 mmol/L 98-107 Creatinine 1.1 mg/dL 0.5-1.4 Globulin 3.3 g/dL 1.9-4.3 Glom Filtration Rate, Estimate >60 mL/min >60 Glucose 101 mg/dL 76-115 Hematocrit 46.6 % 38.0-48.0 Hemoglobin 16.2 gm/dL 12.8-17.0 If >60 mL/min >60 86 Lipase 154 U/L 28-380 Mean Cell Volume 87.1 fl 80.0-96.0 Mean Corpuscular HGB 30.3 pg 27.0-33.0 Mean Corpuscular HGB Conc 34.8 g/dL 31.7-36.0 Mean Platelet Volume 11.0 fL High 6.6-10.6 Platelet Count 188 K/uL 150-400 Potassium 3.8 mmol/L 3.5-5.1 Red Blood Count 5.35 M/uL 4.20-5.80 Red Cell Distri Width %CV 13.7 % 11.6-15.8 SGPT/Alt 41 U/L 30-65 Sgot/Ast 28 U/L 16-40 Sodium 141 mmol/L 136-145 Total Protein 7.3 g/dL 6.3-8.0 Urine Bilirubin - Dipstick Negative Negative Urine Blood Negative Negative Urine Clarity Clear Clear Urine Color Yellow Yellow Urine Glucose - Dipstick Negative mg/dL Negative Urine Ketone Negative mg/dL Negative Urine Leuk Esterase Negative Negative Urine Nitrite - Dipstick Negative Negative Urine PH 6.0 Low 6.5-7.5 Urine Protein - Dipstick Negative mg/dL Negative Urine Specific [place] >=1.030 1.010-1.030 Urine Urobilinogen - Dipstick 0.2 E.U./dL 0.2-1.0 White Blood Count 8.0 K/uL 3.4-10.5 Laboratory test 11/17/2012 N2N/CCD Import Throat Culture See Note 87 finding Complete 1 R73.O1,E78.2,Z12.5 2 Elevated levels of HbA1c suggest the need for more aggressive treatment of glycemia. The [employer] recommends that a primary goal of therapy should be a HbA1c of <7% and that physicians should re-evaluate the treatment regimen in patients with HbA1c values consistently >8%. 3 Note: Persistent reduction for 3 months or more in an eGFR <60 mL/min/1.73 m2 defines CKD. Patients with eGFR values >/=60 mL/min/1.73 m2 may also have CKD if evidence of persistent proteinuria is present. The original MDRD equation for estimated GFR is not valid for patients less than 18 years of age. Additional information may be found at www.kdoqi.org. 4 THIS ASSAY IS NOT INTENDED A CANCER SCREENING TEST The concentration of PSA in a given specimen, determined with assays from different manufacturers, can vary due to differences in assay methods and reagent specificity. Values obtained from different assay methods cannot be used interchangeably. Method: [employer] [place] Chemiluminescent immunoassay. 5 Reference Guidelines*: Desirable: ........... < 200 mg/dL Borderline High: ..... 200-239 mg/dL High: ................ >=240 mg/dL * The National Cholesterol Education Program (NCEP) 6 Reference Guidelines*: Normal: ............. < 150 mg/dL Borderline High: .... 150-199 mg/dL High: ............... 200-499 mg/dL Very High: .......... > 500 mg/dL * Source: National Cholesterol Education Program (NCEP) 7 Reference Guidelines*: Low HDL: ..... < 40 mg/dL Normal: ..... 40-60 mg/dL Desirable: ... > 60 mg/dL *The National Cholesterol Education Program(NCEP) 8 Reference Guidelines*: Optimal:........... <100 mg/dL Near Optimal....... 100-129 mg/dL Borderline High.... 130-159 mg/dL High............... 160-189 mg/dL Very High.......... >=190 mg/dL * Source: National Cholesterol Education Program (NCEP) 9 URINE SPECIMEN AVAILABLE IN LAB FOR 24 HOURS FOR ADD ON CULTURE Unless otherwise specified, testing performed by [email or web address] [address] [place] [address] 10 Unless otherwise specified, testing performed by [email or web address] [address] [place] [address] 11 Unless otherwise specified, testing performed by [email or web address] [address] [place] [address] 12 NORMAL KIDNEY FUNCTION OR MILD DISEASE - GFR >OR=60 CHRONIC KIDNEY DISEASE - GFR 15 - 59 RENAL FAILURE - GFR <15 Est. GFR calculation based on the MDRD study equation, which assumes a steady state for creatinine. Est. GFR should not be used for medication dosing. Unless otherwise specified, testing performed by [facility] [address] [place] [address] 13 Unless otherwise specified, testing performed by [email or web address] [address] [place] [address] 14 Unless otherwise specified, testing performed by [email or web address] [address] [place] [address] 15 PERFORMED AT [address] [place] [address] Unless otherwise specified, testing performed by [email or web address] [address] [place] [address] 16 TROPONIN LEVELS TWO TIMES THE UPPER LIMIT OF NORMAL ARE MORE PREDICTIVE OF MYOCARDIAL INFARCTION THAN LESSER ELEVATIONS WHICH CAN BE DUE TO MYOCARDIAL DAMAGE OR STRUCTURAL HEART DISEASE IN THE ABSENCE OF ANY ACUTE PROCESS ([facility] 361:9, 2009) PERFORMED BY [facility] Unless otherwise specified, testing performed by [email or web address] [address] [place] [address] 17 R73.01 E78.2 Z12.5 18 THIS ASSAY IS NOT INTENDED A CANCER SCREENING TEST The concentration of PSA in a given specimen, determined with assays from different manufacturers, can vary due to differences in assay methods and reagent specificity. Values obtained from different assay methods cannot be used interchangeably. Method: [employer] [place] Chemiluminescent immunoassay. 19 Reference Guidelines*: Desirable: ........... < 200 mg/dL Borderline High: ..... 200-239 mg/dL High: ................ >=240 mg/dL * The National Cholesterol Education Program (NCEP) 20 Reference Guidelines*: Normal: ............. < 150 mg/dL Borderline High: .... 150-199 mg/dL High: ............... 200-499 mg/dL Very High: .......... > 500 mg/dL * Source: National Cholesterol Education Program (NCEP) 21 Reference Guidelines*: Low HDL: ..... < 40 mg/dL Normal: ..... 40-60 mg/dL Desirable: ... > 60 mg/dL *The National Cholesterol Education Program(NCEP) 22 Reference Guidelines*: Optimal:........... <100 mg/dL Near Optimal....... 100-129 mg/dL Borderline High.... 130-159 mg/dL High............... 160-189 mg/dL Very High.......... >=190 mg/dL * Source: National Cholesterol Education Program (NCEP) 23 Elevated levels of HbA1c suggest the need for more aggressive treatment of glycemia. The [employer] recommends that a primary goal of therapy should be a HbA1c of <7% and that physicians should re-evaluate the treatment regimen in patients with HbA1c values consistently >8%. 24 Note: Persistent reduction for 3 months or more in an eGFR <60 mL/min/1.73 m2 defines CKD. Patients with eGFR values >/=60 mL/min/1.73 m2 may also have CKD if evidence of persistent proteinuria is present. The original MDRD equation for estimated GFR is not valid for patients less than 18 years of age. Additional information may be found at www.kdoqi.org. 25 Updated reference range on new analyzer 26 Updated reference range on new analyzer 27 Concerning GFR Guidelines: Normal function or mild renal disease, if clinically at risk: >/=60 mL/min Moderately decreased: 30-59 Severely decreased: 15-29 Renal failure: <15 Glomerular Filtration Rate (GFR) is estimated based on the MDRD equation, which assumes a steady state for creatinine as recommended by the National Kidney Disease Education Program in conjunction with the National Institutes of Health and the National Kidney Foundation. Clinical conditions in which it may be necessary to measure GFR by using clearance methods include extremes of age and body size, severe malnutrition or obesity, diseases of skeletal muscle, paraplegia or quadriplegia, vegetarian diet, rapidly changing kidney function, and calculation of the dose of potentially toxic drugs that are excreted by the kidneys. 28 Concerning GFR Guidelines for Americans: Normal function or mild renal disease, if clinically at risk: >/=60 mL/min Moderately decreased: 30-59 Severely decreased: 15-29 Renal failure: <15 29 Updated reference range on new analyzer 30 Per NCEP ATP III Guidelines: Results lower than 40 mg/dL are suggestive of increased risk for coronary artery disease. Results > or=to 60 mg/dL are considered a negative risk factor. 31 Per NCEP ATP III Guidelines: Normal Population <130 Patients with medical conditions: CHD/DM Optimal: <100 Borderline high: 130-159 High: 160-189 Very high: >189 32 3mo 33 Updated reference range on new analyzer 34 Updated reference range on new analyzer 35 Concerning GFR Guidelines for Americans: Normal function or mild renal disease, if clinically at risk: >/=60 mL/min Moderately decreased: 30-59 Severely decreased: 15-29 Renal failure: <15 36 Concerning GFR Guidelines: Normal function or mild renal disease, if clinically at risk: >/=60 mL/min Moderately decreased: 30-59 Severely decreased: 15-29 Renal failure: <15 Glomerular Filtration Rate (GFR) is estimated based on the MDRD equation, which assumes a steady state for creatinine as recommended by the National Kidney Disease Education Program in conjunction with the National Institutes of Health and the National Kidney Foundation. Clinical conditions in which it may be necessary to measure GFR by using clearance methods include extremes of age and body size, severe malnutrition or obesity, diseases of skeletal muscle, paraplegia or quadriplegia, vegetarian diet, rapidly changing kidney function, and calculation of the dose of potentially toxic drugs that are excreted by the kidneys. 37 Updated reference range on new analyzer 38 3 39 Updated reference range on new analyzer 40 Updated reference range on new analyzer 41 Concerning GFR Guidelines: Normal function or mild renal disease, if clinically at risk: >/=60 mL/min Moderately decreased: 30-59 Severely decreased: 15-29 Renal failure: <15 Glomerular Filtration Rate (GFR) is estimated based on the MDRD equation, which assumes a steady state for creatinine as recommended by the National Kidney Disease Education Program in conjunction with the National Institutes of Health and the National Kidney Foundation. Clinical conditions in which it may be necessary to measure GFR by using clearance methods include extremes of age and body size, severe malnutrition or obesity, diseases of skeletal muscle, paraplegia or quadriplegia, vegetarian diet, rapidly changing kidney function, and calculation of the dose of potentially toxic drugs that are excreted by the kidneys. 42 Concerning GFR Guidelines for Americans: Normal function or mild renal disease, if clinically at risk: >/=60 mL/min Moderately decreased: 30-59 Severely decreased: 15-29 Renal failure: <15 43 Updated reference range on new analyzer 44 Per NCEP ATP III Guidelines: Results lower than 40 mg/dL are suggestive of increased risk for coronary artery disease. Results > or=to 60 mg/dL are considered a negative risk factor. 45 Per NCEP ATP III Guidelines: Normal Population <130 Patients with medical conditions: CHD/DM Optimal: <100 Borderline high: 130-159 High: 160-189 Very high: >189 46 after 07/26 47 Updated reference range on new analyzer 48 Updated reference range on new analyzer 49 Concerning GFR Guidelines for Americans: Normal function or mild renal disease, if clinically at risk: >/=60 mL/min Moderately decreased: 30-59 Severely decreased: 15-29 Renal failure: <15 50 Concerning GFR Guidelines: Normal function or mild renal disease, if clinically at risk: >/=60 mL/min Moderately decreased: 30-59 Severely decreased: 15-29 Renal failure: <15 Glomerular Filtration Rate (GFR) is estimated based on the MDRD equation, which assumes a steady state for creatinine as recommended by the National Kidney Disease Education Program in conjunction with the National Institutes of Health and the National Kidney Foundation. Clinical conditions in which it may be necessary to measure GFR by using clearance methods include extremes of age and body size, severe malnutrition or obesity, diseases of skeletal muscle, paraplegia or quadriplegia, vegetarian diet, rapidly changing kidney function, and calculation of the dose of potentially toxic drugs that are excreted by the kidneys. 51 Updated reference range on new analyzer 52 Beginning 07/19/06 PSA values assayed at [facility] uses chemiluminescence methodology manufactured by [employer] for use on the DXI analyzer. Values obtained with different assay methods or kits can not be used interchangeably. Serum PSA measurement is not an absolute test for malignancy. The PSA value should be used in conjunction with information available from clinical evaluation and other diagnostic procedures. 53 Per NCEP ATP III Guidelines: Results lower than 40 mg/dL are suggestive of increased risk for coronary artery disease. Results > or=to 60 mg/dL are considered a negative risk factor. 54 Per NCEP ATP III Guidelines: Normal Population <130 Patients with medical conditions: CHD/DM Optimal: <100 Borderline high: 130-159 High: 160-189 Very high: >189 55 Concerning GFR Guidelines for Americans: Normal function or mild renal disease, if clinically at risk: >/=60 mL/min Moderately decreased: 30-59 Severely decreased: 15-29 Renal failure: <15 56 Concerning GFR Guidelines: Normal function or mild renal disease, if clinically at risk: >/=60 mL/min Moderately decreased: 30-59 Severely decreased: 15-29 Renal failure: <15 Glomerular Filtration Rate (GFR) is estimated based on the MDRD equation, which assumes a steady state for creatinine as recommended by the National Kidney Disease Education Program in conjunction with the National Institutes of Health and the National Kidney Foundation. Clinical conditions in which it may be necessary to measure GFR by using clearance methods include extremes of age and body size, severe malnutrition or obesity, diseases of skeletal muscle, paraplegia or quadriplegia, vegetarian diet, rapidly changing kidney function, and calculation of the dose of potentially toxic drugs that are excreted by the kidneys. 57 6 mos 58 Concerning GFR Guidelines: Normal function or mild renal disease, if clinically at risk: >/=60 mL/min Moderately decreased: 30-59 Severely decreased: 15-29 Renal failure: <15 Glomerular Filtration Rate (GFR) is estimated based on the MDRD equation, which assumes a steady state for creatinine as recommended by the National Kidney Disease Education Program in conjunction with the National Institutes of Health and the National Kidney Foundation. Clinical conditions in which it may be necessary to measure GFR by using clearance methods include extremes of age and body size, severe malnutrition or obesity, diseases of skeletal muscle, paraplegia or quadriplegia, vegetarian diet, rapidly changing kidney function, and calculation of the dose of potentially toxic drugs that are excreted by the kidneys. 59 Concerning GFR Guidelines for Americans: Normal function or mild renal disease, if clinically at risk: >/=60 mL/min Moderately decreased: 30-59 Severely decreased: 15-29 Renal failure: <15 60 Elevated levels of HbA1c suggest the need for more aggressive treatment of glycemia. The [employer] recommends that a primary goal of therapy should be a HbA1c of <7% and that physicians should re-evaluate the treatment regimen in patients with HbA1c values consistently >8%. 61 THIS ASSAY IS NOT INTENDED A CANCER SCREENING TEST The concentration of PSA in a given specimen, determined with assays from different manufacturers, can vary due to differences in assay methods and reagent specificity. Values obtained from different assay methods cannot be used interchangeably. 62 Note: Persistent reduction for 3 months or more in an eGFR <60 mL/min/1.73 m2 defines CKD. Patients with eGFR values >/=60 mL/min/1.73 m2 may also have CKD if evidence of persistent proteinuria is present. The original MDRD equation for estimated GFR is not valid for patients less than 18 years of age. Additional information may be found at [email or web address]. 63 Note: Persistent reduction for 3 months or more in an eGFR <60 mL/min/1.73 m2 defines CKD. Patients with eGFR values >/=60 mL/min/1.73 m2 may also have CKD if evidence of persistent proteinuria is present. The original MDRD equation for estimated GFR is not valid for patients less than 18 years of age. Additional information may be found at [email or web address]. 64 Elevated levels of HbA1c suggest the need for more aggressive treatment of glycemia. The [employer] recommends that a primary goal of therapy should be a HbA1c of <7% and that physicians should re-evaluate the treatment regimen in patients with HbA1c values consistently >8%. 65 THIS ASSAY IS NOT INTENDED A CANCER SCREENING TEST The concentration of PSA in a given specimen, determined with assays from different manufacturers, can vary due to differences in assay methods and reagent specificity. Values obtained from different assay methods cannot be used interchangeably. 66 Note: Persistent reduction for 3 months or more in an eGFR <60 mL/min/1.73 m2 defines CKD. Patients with eGFR values >/=60 mL/min/1.73 m2 may also have CKD if evidence of persistent proteinuria is present. The original MDRD equation for estimated GFR is not valid for patients less than 18 years of age. Additional information may be found at [email or web address]. 67 Elevated levels of HbA1c suggest the need for more aggressive treatment of glycemia. The [employer] recommends that a primary goal of therapy should be a HbA1c of <7% and that physicians should re-evaluate the treatment regimen in patients with HbA1c values consistently >8%. 68 Note: Persistent reduction for 3 months or more in an eGFR <60 mL/min/1.73 m2 defines CKD. Patients with eGFR values >/=60 mL/min/1.73 m2 may also have CKD if evidence of persistent proteinuria is present. The original MDRD equation for estimated GFR is not valid for patients less than 18 years of age. Additional information may be found at [email or web address]. 69 Note: Persistent reduction for 3 months or more in an eGFR <60 mL/min/1.73 m2 defines CKD. Patients with eGFR values >/=60 mL/min/1.73 m2 may also have CKD if evidence of persistent proteinuria is present. The original MDRD equation for estimated GFR is not valid for patients less than 18 years of age. Additional information may be found at [email or web address]. 70 Note: Persistent reduction for 3 months or more in an eGFR <60 mL/min/1.73 m2 defines CKD. Patients with eGFR values >/=60 mL/min/1.73 m2 may also have CKD if evidence of persistent proteinuria is present. The original MDRD equation for estimated GFR is not valid for patients less than 18 years of age. Additional information may be found at [email or web address]. 71 THERAPEUTIC INR RANGE: 2.0 - 3.0 DVT, Pulmonary embolus, prophylaxis against venous thrombosis or systemic embolization in high risk patients. 2.5 - 3.5 Mechanical heart valves 72 Note: Persistent reduction for 3 months or more in an eGFR <60 mL/min/1.73 m2 defines CKD. Patients with eGFR values >/=60 mL/min/1.73 m2 may also have CKD if evidence of persistent proteinuria is present. The original MDRD equation for estimated GFR is not valid for patients less than 18 years of age. Additional information may be found at [email or web address]. 73 [id number] O POS Comp? Y <N/A> 74 Reference Guidelines*: Desirable: ........... < 200 mg/dL Borderline High: ..... 200-239 mg/dL High: ................ >=240 mg/dL * The National Cholesterol Education Program (NCEP) 75 Reference Guidelines*: Low HDL: ..... < 40 mg/dL Normal: ..... 40-60 mg/dL Desirable: ... > 60 mg/dL *The National Cholesterol Education Program(NCEP) 76 Reference Guidelines*: Optimal:........... <100 mg/dL Near Optimal....... 100-129 mg/dL Borderline High.... 130-159 mg/dL High............... 160-189 mg/dL Very High.......... >=190 mg/dL * Source: National Cholesterol Education Program ( NCEP) 77 Reference Guidelines*: Normal: ............. < 150 mg/dL Borderline High: .... 150-199 mg/dL High: ............... 200-499 mg/dL Very High: .......... > 500 mg/dL * Source: National Cholesterol Education Program (NCEP) 78 Elevated levels of HbA1c suggest the need for more aggressive treatment of glycemia. The [employer] recommends that a primary goal of therapy should be a HbA1c of <7% and that physicians should re-evaluate the treatment regimen in patients with HbA1c values consistently >8%. 79 Note: Persistent reduction for 3 months or more in an eGFR <60 mL/min/1.73 m2 defines CKD. Patients with eGFR values >/=60 mL/min/1.73 m2 may also have CKD if evidence of persistent proteinuria is present. The original MDRD equation for estimated GFR is not valid for patients less than 18 years of age. Additional information may be found at [email or web address]. 80 THIS ASSAY IS NOT INTENDED A CANCER SCREENING TEST The concentration of PSA in a given specimen, determined with assays from different manufacturers, can vary due to differences in assay methods and reagent specificity. Values obtained from different assay methods cannot be used interchangeably. 81 0 - 0.5 ng/mL: No evidence of myocardial injury 0.6 - 1.4 ng/mL: Mild elevation, suggesting possible myocardial injury > 1.4 ng/mL: Consistent with myocardial injury 82 0 - 0.5 ng/mL: No evidence of myocardial injury 0.6 - 1.4 ng/mL: Mild elevation, suggesting possible myocardial injury > 1.4 ng/mL: Consistent with myocardial injury 83 Note: Persistent reduction for 3 months or more in an eGFR <60 mL/min/1.73 m2 defines CKD. Patients with eGFR values >/=60 mL/min/1.73 m2 may also have CKD if evidence of persistent proteinuria is present. The original MDRD equation for estimated GFR is not valid for patients less than 18 years of age. Additional information may be found at [email or web address]. 84 < 5%=non AMI 5 - 10%=borderline for AMI > 10%=positive for AMI FOR DIAGNOSTIC PURPOSES, THE CK-MB RESULT (MASS AND RELATIVE PERCENT INDEX) SHOULD BE USED IN CONJUNCTION WITH OTHER PERTINENT CLINICAL DATA. 85 0 - 0.5 ng/mL: No evidence of myocardial injury 0.6 - 1.4 ng/mL: Mild elevation, suggesting possible myocardial injury > 1.4 ng/mL: Consistent with myocardial injury 86 Note: Persistent reduction for 3 months or more in an eGFR <60 mL/min/1.73 m2 defines CKD. Patients with eGFR values >/=60 mL/min/1.73 m2 may also have CKD if evidence of persistent proteinuria is present. The original MDRD equation for estimated GFR is not valid for patients less than 18 years of age. Additional information may be found at [email or web address]. 87 NORMAL THROAT SHAY Procedures Date Code Description Status 09/06/2017 08313 Brief Emotional/Behav Assessment W/ Scoring Doc Per Completed Standard Inst 06/03/2017 95252 Measure Blood Oxygen Level Single Determination Completed 02/25/2017 97517 Measure Blood Oxygen Level Single Determination Completed 04/15/2016 46372 Electrocardiogram Complete Completed 06/26/2015 94525 Measure Blood Oxygen Level Single Determination Completed 01/14/2015 12884 Measure Blood Oxygen Level Single Determination Completed 05/24/2012 99162915 Colonoscopy Completed Encounters Type Date Location Provider Dx Diagnosis Office Visit 09/06/2017 [facility] Jennifer Akers MD Z68.33 Body mass index (BMI ) 11:00a 33.0-33.9, adult Z23 Encounter for immunization K21.9 Gastro-esophageal reflux disease without esophagitis R73.01 Impaired fasting glucose M54.2 Cervicalgia M54.30 Sciatica, unspecified side J30.9 Allergic rhinitis, unspecified K59.00 Constipation, unspecified M79.7 Fibromyalgia J45.20 Mild intermittent asthma, uncomplicated E78.2 Mixed hyperlipidemia Z12.5 Encounter for screening for malignant neoplasm of prostate Z13.89 Encounter for screening for other disorder Office Visit 06/03/2017 9:15a [facility] Jennifer Akers MD K21.9 Gastro- esophageal reflux disease without esophagitis R73.01 Impaired fasting glucose M54.2 Cervicalgia M54.30 Sciatica, unspecified side J30.9 Allergic rhinitis, unspecified K59.00 Constipation, unspecified M79.7 Fibromyalgia J45.20 Mild intermittent asthma, uncomplicated E78.2 Mixed hyperlipidemia Z12.5 Encounter for screening for malignant neoplasm of prostate S56.103A Unsp inj flexor musc/fasc/tend r mid fngr at forarm , init Office Visit 02/25/2017 9:00a [facility] Jennifer Akers MD K21.9 Gastro- esophageal reflux disease without esophagitis R73.01 Impaired fasting glucose M54.2 Cervicalgia M54.30 Sciatica, unspecified side J30.9 Allergic rhinitis, unspecified K59.00 Constipation, unspecified M79.7 Fibromyalgia J45.20 Mild intermittent asthma, uncomplicated E78.2 Mixed hyperlipidemia J45.30 Mild persistent asthma, uncomplicated Office Visit 11/06/2016 9:15a Jennifer Daniel MD K21.9 Gastro- esophageal reflux disease without esophagitis R73.01 Impaired fasting glucose M54.2 Cervicalgia M54.30 Sciatica, unspecified side J30.9 Allergic rhinitis, unspecified K59.00 Constipation, unspecified M79.7 Fibromyalgia J45.20 Mild intermittent asthma, uncomplicated E78.2 Mixed hyperlipidemia Office Visit 08/06/2016 8:45a [facility] Jennifer Akers MD K21.9 Gastro- esophageal reflux disease without esophagitis R73.01 Impaired fasting glucose M54.2 Cervicalgia M54.30 Sciatica, unspecified side J30.9 Allergic rhinitis, unspecified K59.00 Constipation, unspecified M79.7 Fibromyalgia J45.20 Mild intermittent asthma, uncomplicated Z11.59 Encounter for screening for other viral diseases E78.2 Mixed hyperlipidemia Office Visit 04/15/2016 8:30a [facility] Jennifer Akers MD R00.0 Tachycardia, unspecified Office Visit 02/06/2016 8:00a [facility] Jennifer Akers MD K21.9 Gastro- esophageal reflux disease without esophagitis R73.01 Impaired fasting glucose M54.2 Cervicalgia M54.30 Sciatica, unspecified side J30.9 Allergic rhinitis, unspecified K59.00 Constipation, unspecified M79.7 Fibromyalgia J45.20 Mild intermittent asthma, uncomplicated Z12.5 Encounter for screening for malignant neoplasm of prostate Z13.220 Encounter for screening for lipoid disorders Office Visit 07/30/2015 1:15p [facility] Jennifer Akers MD K21.9 Gastro- esophageal reflux disease without esophagitis R73.01 Impaired fasting glucose M54.2 Cervicalgia M54.30 Sciatica, unspecified side J30.9 Allergic rhinitis, unspecified J45.909 Unspecified asthma, uncomplicated K59.00 Constipation, unspecified M79.7 Fibromyalgia Office Visit 06/26/2015 11:00a [facility] Jennifer Akers MD J01.90 Acute sinusitis, unspecified Office Visit 06/12/2015 10:00a [facility] Jennifer Akers MD M54.32 Sciatica, LEFT side H61.21 Impacted cerumen, RIGHT ear H65.22 Chronic serous otitis media, LEFT ear Office Visit 05/07/2015 2:45p [facility] Jennifer Akers MD K21.9 Gastro- esophageal reflux disease without esophagitis R73.01 Impaired fasting glucose M54.2 Cervicalgia M54.32 Sciatica, LEFT side J30.9 Allergic rhinitis, unspecified J45.909 Unspecified asthma, uncomplicated K59.00 Constipation, unspecified M79.7 Fibromyalgia Office Visit 03/25/2015 3:45p [facility] Jennifer Akers MD M79.7 Fibromyalgia J32.9 Chronic sinusitis, unspecified Office Visit 02/19/2015 1:30p [facility] Jennifer Akers MD K21.9 Gastro- esophageal reflux disease without esophagitis R73.01 Impaired fasting glucose M54.2 Cervicalgia M54.32 Sciatica, LEFT side J30.9 Allergic rhinitis, unspecified J45.909 Unspecified asthma, uncomplicated K59.00 Constipation, unspecified J32.9 Chronic sinusitis, unspecified M79.7 Fibromyalgia Office Visit 01/14/2015 4:00p [facility] Joanna Goff, 461.9 Sinusitis Acute [employer] Unspec Office Visit 11/16/2014 1:45p [facility] Jennifer Akers MD 530.81 Esophageal Reflux 790.21 Impaired Fasting Glucose 723.1 Cervicalgia 724.3 Sciatica 477.9 Rhinitis Allergic Cause Unspec 493.00 Asthma Extrinsic Unspecified 564.00 Constipation Unspecified 562.13 Diverticulitis Colon W/ Hemorrhage Office Visit 10/02/2014 4:30p [facility] Jennifer Akers MD 562.13 Diverticulitis Colon W/ Hemorrhage 564.00 Constipation Unspecified Office Visit 09/25/2014 11:00a [facility] Suzie Estes, 564.00 Constipation PA Unspecified Plan of Treatment Future Appointment(s):10/18/2018 8:40 am - Schedule, Laboratory at [facility]2018 9:30 am - Jennifer Akers MD at [facility]04/25/2018 - Jennifer Akers MDK21.9 Gastro-esophageal reflux disease without esophagitisComments:uses protonix about 5 times uaaipnY00.01 Impaired fasting glucoseNew Labs:Hemoglobin A1c, Scheduled: 10/18/18Basic ([facility]), Scheduled: 10/18/18Comments:improving in spite of worsening of the diet!M54.2 CervicalgiaComments:is yroxtgyvyyU75.30 Sciatica , unspecified sideComments:continue care with [facility] - has had injections needs refill of tramadol today [facility] checked and in compliance Reference #: [id number] Allergic rhinitis, unspecifiedComments:still with chronic symptoms - uses nasal sprays - sees dr guoK59.00 Constipation, unspecifiedComments:uses miralax and this controls itM79.7 FibromyalgiaNew Medication:Esomeprazole Magnesium 40 mg - 1 by mouth every dayComments:uses tramadol three times daily - refill today. [facility] checked and in compliance Reference #: [id number] Mild intermittent asthma, uncomplicatedComments:no recent pesahakdpetgE52.2 Mixed hyperlipidemiaComments:doing very without medication - keep up the good work.Z68.32 Body mass index (BMI) 32.0-32.9, adultComments:the BMI is the ratio between height and weight. goal for a person over age 65 is between 23 and 30. You are overweight. Work on healthy lifestyle, with regular exercise (20 min daily will help) and eat a healthy diet. formal diet plans work best.AllFollow up:6 mo follow-up with nonfasting labs prior Goals 04/25/2018 - Jennifer Akers MDK21.9 Gastro-esophageal reflux disease without esophagitisswitched to omeprazole and doing well.
[2018-05-02 16:40] VITALS: BP 135/92
--- NOTE | 2018-05-02 17:03 | UC ---
Throat Pain/Nasal Leeroy HPI - HPI Summary HPI Summary: 63 year old male presents with 3 day history of sore throat and bilateral ear pain. Associated with mild nasal congestion. States today started with non- productive cough and right chest wall pain. History of intermittent asthma and has used nebulizer twice in past 3 days. Denies fever, chills, dysphagia, palpitations, shortness of breath, abdominal pain, nausea, vomiting, or diarrhea. - History of Current Complaint Chief Complaint: UCRespiratory Stated Complaint: SORE THROAT Time Seen by Provider: 05/02/18 16:46 Hx Obtained From: Patient Onset/Duration: Gradual Onset, Lasting Days Pain Intensity: 4 Cough: Nonproductive Associated Signs & Symptoms: Positive: Nasal Discharge. Negative: Dysphagia, Wheezing, Sinus Discomfort, Fever, Vomiting - Allergies/Home Medications Allergies/Adverse Reactions: Allergies Allergy/AdvReac Type Severity Reaction Status Date / Time levofloxacin Allergy Severe RESP Verified 05/02/18 16:41 DISTRESS Sulfa (Sulfonamide Allergy Severe HEART Verified 05/02/18 16:41 Antibiotics) STOPPED amoxicillin Allergy Intermediate Rash Verified 05/02/18 16:41 cefaclor [From Ceclor] Allergy Mild Rash Verified 05/02/18 16:41 codeine AdvReac Mild MIGRANES Verified 05/02/18 16:41 Home Medications: Home Medications Docusate Sodium [Colace] 100 mg PO BID 05/02/18 [History Confirmed 05/02/18] Multivitamin [Multiple Vitamins] 1 tab PO DAILY 05/02/18 [History Confirmed 03/10] PMH/Surg Hx/FS Hx/Imm Hx Previously Healthy: Yes Respiratory History: Asthma GI/ History: Gastroesophageal Reflux, Other - Irritable bowel - Surgical History Surgical History: Yes Surgery Procedure, Year, and Place: cholecystectomy. hernia repair x3. acl left knee. sinus surgery x2 - Family History Known Family History: Positive: Cardiac Disease, Hypertension - Social History Occupation: Employed Full-time Lives: With Family Alcohol Use: Rare Substance Use Type: None Smoking Status (MU): Never Smoked Tobacco Have You Smoked in the Last Year: No - Immunization History Most Recent Influenza Vaccination: Not the 2017/2017 Season Hx Tetanus, Diphtheria Vaccination: Yes Vaccination Up to Date: Yes Review of Systems All Other Systems Reviewed And Are Negative: Yes Constitutional: Negative: Fever, Chills Skin: Negative: Rash Eyes: Negative: Drainage, Eye Redness ENT: Positive: Sore Throat, Ear Ache, Nasal Discharge, Sinus Congestion Respiratory: Positive: Cough. Negative: Shortness Of Breath Cardiovascular: Positive: Other - Chest wall pain. Negative: Palpitations Gastrointestinal: Negative: Abdominal Pain, Vomiting, Diarrhea, Nausea Is Patient Immunocompromised?: No Physical Exam - Summary Physical Exam Summary: GENERAL APPEARANCE: Well developed, well nourished, alert and cooperative, and appears to be in no acute distress. EYES: Conjunctiva clear. No discharge. EARS: External auditory with small amount cerumen. Tympanic membranes clear. Hearing grossly intact. NOSE: Mild nasal congestion. No nasal discharge. THROAT: Oral cavity normal. Pharyngeal erythema. No tonsilar inflammation, swelling, or exudate. Teeth and gingiva in good general condition. NECK: Neck supple, non-tender without lymphadenopathy. CARDIAC: Normal S1 and S2. No S3, S4 or murmurs. Rhythm is regular. There is no peripheral edema, cyanosis or pallor. Extremities are warm and well perfused. Capillary refill is less than 2 seconds. LUNGS: Clear to auscultation and percussion without rales, rhonchi, wheezing or diminished breath sounds. ABDOMEN: Positive bowel sounds. Soft, nondistended, nontender. No guarding or rebound. No masses or hepatosplenomegally. MUSKULOSKELETAL: Normal muscular development. Normal gait. EXTREMITIES: No edema. Peripheral pulses intact. SKIN: Skin normal color, texture and turgor with no lesions or eruptions. Triage Information Reviewed: Yes Vital Signs: Initial Vital Signs Temp 98.3 F 05/02/18 16:35 Pulse 83 05/02/18 16:35 Resp 17 05/02/18 16:35 BP 135/92 05/02/18 16:35 Pulse Ox 98 05/02/18 16:35 Vital Signs Reviewed: Yes Diagnostics - Laboratory Diagnostic Studies Completed/Ordered: Rapid strep negative Throat Pain/Nasal Course/Dx - Course Course Of Treatment: 63 year old male presents with 3 day history of sore throat and bilateral ear pain. Associated with mild nasal congestion. States today started with non-productive cough and right chest wall pain. History of intermittent asthma and has used nebulizer twice in past 3 days. Denies fever, chills, dysphagia, palpitations, shortness of breath, abdominal pain, nausea, vomiting, or diarrhea. Afebrile. VSS. Exam consistent with a viral URI. Rapid strep negative. Recommend symptomatic treatment. He is to follow up with PCP in 7 days if symptoms persist. Warning symptoms reviewed. Verbalizes understanding and agrees with POC. - Differential Dx/Diagnosis Differential Diagnosis/HQI/PQRI: Pharyngitis, Sinusitis, Tonsillitis, URI Provider Diagnosis: Viral URI Discharge - Sign-Out/Discharge Documenting (check all that apply): Patient Departure All imaging exams completed and their final reports reviewed: No Studies - Discharge Plan Condition: Stable Disposition: HOME Patient Education Materials: Upper Respiratory Infection (ED) Referrals: Jennifer Akers MD [Primary Care Provider] - 7 Days (If symptoms persist.) Additional Instructions: The rapid strep test performed in the clinic today was negative. Your history and exam are consistent with a viral upper respiratory infection. Viral infections do not respond to antibiotics and are limited to the treatment of symptoms. Viral infections typically run their course in 7-10 days. Drink plenty of fluids to avoid dehydration especially if you are running any fever. Use a saline rinse kit such as Neti Pot or NeilMed at least twice a day to help thin secretions and promote drainage of the sinuses. Use fluticasone (Flonase) nasal spray 2 sprays each nostril once daily. Take over the counter acetaminophen (Tylenol) or ibuprofen (Advil, Motrin) according to directions as needed for pain or fever. Use salt water gargles several times a day if you have a sore throat. You may also use Chloraseptic spray or Cepacol lonzenges according to directions which contain a numbing medication and can provide some temporary relief from your sore throat. Follow up with your primary care provider in 7 days if symptoms persist. Seek immediate medical attention in the emergency room if you have fever greater than 100.5 F despite taking acetaminophen or ibuprofen, have worsening or persistent chest pain, difficulty breathing, become weak or dizzy, or have any worsening of symptoms. - Billing Disposition and Condition Condition: STABLE Disposition: Home
== END 2018-05-02 17:15 | disposition home or self-care (01) ==
LOC: UCCORT 16:22
DX: J06.9 Acute upper respiratory infection, unspecified (principal); J45.909 Unspecified asthma, uncomplicated; Z88.0 Allergy status to penicillin; Z88.2 Allergy status to sulfonamides; Z88.1 Allergy status to other antibiotic agents; Z88.5 Allergy status to narcotic agent
CPT/HCPCS: 87651; 99212; G0463

== ENCOUNTER 2018-08-01 14:55 | Emergency (ER) | payer BC ==
[2018-08-01 16:20] VITALS: BP 124/79
--- NOTE | 2018-08-01 16:25 | UC ---
Respiratory Complaint HPI - HPI Summary HPI Summary: He had flulike symptoms last week however today he states that he has a productive cough of brown sputum. He has asthma and fibromyalgia but is a nonsmoker. He did receive a flu shot in fall. - History of Current Complaint Chief Complaint: UCRespiratory Stated Complaint: COUGH,FEVER,CONGESTION Time Seen by Provider: 08/01/18 16:20 Hx Obtained From: Patient Onset/Duration: Gradual Onset Timing: Intermittent Episodes - Occasional productive cough. Severity Initially: Moderate Severity Currently: Mild Pain Intensity: 3 Aggravating Factors: Nothing Alleviating Factors: Nothing Associated Signs And Symptoms: Positive: Fever, Chills - Risk Factors Pulmonary Embolism Risk Factors: Negative Cardiac Risk Factors: Negative Pseudomonas Risk Factors: Negative Tuberculosis Risk Factors: Negative - Allergies/Home Medications Allergies/Adverse Reactions: Allergies Allergy/AdvReac Type Severity Reaction Status Date / Time levofloxacin Allergy Severe RESP Verified 08/01/18 16:14 DISTRESS Sulfa (Sulfonamide Allergy Severe HEART Verified 08/01/18 16:14 Antibiotics) STOPPED amoxicillin Allergy Intermediate Rash Verified 08/01/18 16:14 cefaclor [From [facility]] Allergy Mild Rash Verified 08/01/18 16:14 codeine AdvReac Mild MIGRANES Verified 08/01/18 16:14 Home Medications: Home Medications Omeprazole 1 cap DAILY 08/01/18 [History Confirmed 08/01/18] traMADol TAB* [Ultram*] 1 tab TID PRN 08/01/18 [History Confirmed 08/01/18] PMH/Surg Hx/FS Hx/Imm Hx Previously Healthy: Yes Endocrine History: Other - Fibromyalgia Respiratory History: Asthma - Surgical History Surgical History: Yes Surgery Procedure, Year, and Place: cholecystectomy. hernia repair x3. acl left knee. sinus surgery x2 - Family History Known Family History: Positive: Cardiac Disease, Hypertension, Other - no fhx PE - Social History Lives: With Family - Patient states his had the flu and then subsequent pneumonia. Alcohol Use: None Substance Use Type: None Smoking Status (MU): Never Smoked Tobacco Have You Smoked in the Last Year: No - Immunization History Most Recent Influenza Vaccination: Not the 2017/2017 Season Hx Tetanus, Diphtheria Vaccination: Yes Vaccination Up to Date: Yes Review of Systems All Other Systems Reviewed And Are Negative: Yes Constitutional: Positive: Fever, Chills Skin: Positive: Negative Eyes: Positive: Negative ENT: Positive: Negative Respiratory: Positive: Cough - Productive cough of brown sputum Cardiovascular: Positive: Negative Gastrointestinal: Positive: Negative Genitourinary: Positive: Negative Motor: Positive: Negative Neurovascular: Positive: Negative Musculoskeletal: Positive: Negative Neurological: Positive: Negative Psychological: Positive: Negative Is Patient Immunocompromised?: No Physical Exam Triage Information Reviewed: Yes Appearance: Well-Appearing, No Pain Distress, Well-Nourished Vital Signs: Initial Vital Signs Temp 98 F 08/01/18 16:16 Pulse 80 08/01/18 16:16 Resp 16 08/01/18 16:16 BP 124/79 08/01/18 16:16 Pulse Ox 98 08/01/18 16:16 Vital Signs Reviewed: Yes Eye Exam: Normal ENT Exam: Normal Neck exam: Normal Respiratory Exam: Normal Respiratory: Positive: Normal breath sounds, No respiratory distress, No accessory muscle use Cardiovascular Exam: Normal Musculoskeletal Exam: Normal Neurological Exam: Normal Psychological Exam: Normal Skin Exam: Normal Respiratory Course/Dx - Course Course Of Treatment: CXR: IMPRESSION: NO EVIDENCE FOR ACTIVE CARDIOPULMONARY DISEASE patient has been comfortable here however with occasional coughing. - Differential Dx/Diagnosis Differential Diagnosis/HQI/PQRI: Bronchitis Provider Diagnosis: Bronchitis - Physician Notification/Consults Discussed Patient Care With: Ang Richmond Time Discussed With Above Provider: 17:35 Discharge - Sign-Out/Discharge Documenting (check all that apply): Patient Departure All imaging exams completed and their final reports reviewed: Yes - Discharge Plan Condition: Fair Disposition: HOME Prescriptions: Azithromycin TAB* [Zithromax TAB (Z-FERMÍN) 250 mg #6 tabs] 2 tab PO .TODAY, THEN 1 DAILY #1 fermín Patient Education Materials: Acute Bronchitis (ED) Referrals: Jennifer Akers MD [Primary Care Provider] - Additional Instructions: Increase fluids, use her albuterol nebulizer treatment every 4-6 hours as needed for wheezing or difficulty breathing. Definite follow up with your primary care provider if no improvement by this Wednesday - Bill Disposition and Condition Condition: FAIR Disposition: Home - Attestation Statements Provider Attestation: Per institutional requirements, I have reviewed the chart, however, I was not consulted specifically or made aware of this patient by the midlevel provider. I did not personally evaluate, interact with , or disposition this patient.
== END 2018-08-01 17:39 | disposition home or self-care (01) ==
LOC: UCCORT 14:55
DX: J45.909 Unspecified asthma, uncomplicated (principal); M79.7 Fibromyalgia; Z88.1 Allergy status to other antibiotic agents; Z88.2 Allergy status to sulfonamides; Z88.0 Allergy status to penicillin; Z88.5 Allergy status to narcotic agent
CPT/HCPCS: 71046; 99212; G0463

== ENCOUNTER 2018-08-20 14:46 | Emergency (ER) | payer BC ==
--- OUTSIDE RECORDS SUMMARY | 2018-08-20 16:43 | XMS REPORT | Continuity of Care Document ---
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 Payers Date Identification Numbers Payment Provider Subscriber Effective: 2011 Policy Number: [id number] [facility] Commercial Micaela Arizmendi PayID: [id number] [address] [address] [place] [address] Advance Directives Description No Information Available Problems [...] Resolved: 11/16/2014 Family History Date Family Member(s) Observation Comments : (age 49 Father due to Cancer, Years) Pancreatic Mother Hypertension : (age 72 Mother due to [place] Years) Maternal Grandmother Diabetes, Adult Diabetes Mellitus,II Social History Type Date Description Comments Sex Unknown Marital Status Lives With Spouse 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 Tobacco Use Start: Unknown Never Smoked Cigarettes Smoking Status Reviewed: 06/10/18 Never Smoked Cigarettes ETOH Use Rarely consumes [...] Form Strength Qnty SIG Indications Ordering Provider Doxycycline 07/23 Active Tablets 100mg 14tab 1 by mouth L03.116 Bey, Monohydrate /2019 s twice a day DO Darron Albuterol 02/26 Active Nebulizer (2.5mg/3M 225ml 3 J45.20 Oswald Sulfate /2016 L) 0.083% milliliters MD Jennifer nebulized every 4 hours as needed cough, wheezing, or shortness of breath Ipratropium 02/26 Active Solution 0.5-2.5(3 90ml 0.5 mg Oswald Austin/Albutero /2016 )mg/3ML nebulizer 4 MD Jennifer l Sulfate times daily Azelastine HCL 02/05 Active Solution 0.1% 90ml use 2 Oswald (Nasal) sprays in MD Jennifer each nostril twice a day Proair HFA 11/16 Active Aerosol 108(90Bas 3unit 2 puffs Sotero /2014 e) s every 4 hilda Rob/Act hours as DO needed Tramadol HCL 11/19 Active Tablets 50mg 540ta take 2 Oswald /2008 bs tablets by MD Jennifer mouth four times a day as needed for pain mdd 6 Trazodone HCL 04/20 Active Tablets 50mg 90tab take 1 Oswald /2004 s tablet at MD Jennifer bedtime Docusate Sodium Active Tablets 100mg Once Daily Unknown /0000 Mucinex Active Tablets ER 600mg Every 12 Unknown /0000 12HR Hours Coenzyme Q10 Active Capsules 200-20mg- Once Daily Unknown /0000 Unit Librax Active Capsules 5-2.5mg 1 by mouth Bony, / up to four Serafin, times a day Multivitamin Active Tablets Adt 50+ 2 by mouth [...] Tablets 20mg 90tab 1 by mouth E78.2 Kenyon Akers s every day MD Jennifer - 11/06 Flonase Allergy 02/05 Hx Suspension 50mcg/Act 48uni 2 sprays to Oswald ts each MD Jennifer - nostril 04/24 daily for nasal congestion Azithromycin 10/28 Hx Tablets 250mg 4tabs as Directed - 02/05 Doxycycline 06/26 Hx Tablets 100mg 28tab 1 by mouth J01.90 Selena Akers s twice a day MD Jennifer - x 14 days 07/10 Doxycycline 01/[address] 100mg 20tab 1 by mouth 461.9 Digiovann Hyclate /2014 s every 12 a, - hours for Joanna, 01/24 10 days, take with food but not milk Ciprofloxacin 09/17 Hx Tablets 500mg 20tab 2 Times A Unknown HCL /2014 s Day - 10/02 Ferrous Sulfate 09/17 Hx Tablets 325(65Fe) 90tab 3 Times Unknown mg s Daily - 10/02 Metronidazole 09/17 Hx Tablets 500mg 30tab 3 Times Unknown s Daily - 10/02 Ondansetron 09/17 Hx Tablets 4mg 10tab Every 6-8 Unknown Dispers s Hours as - Needed prn 04/24 Nausea Tamiflu 06/18 Hx Capsules 75mg 10cap 1 by mouth Altaf, s twice a day Magaly Jacobo DO 09/25 Flonase 04/27 Hx Suspension 50mcg/Act 48uni 2 sprays to , ts each MD Jennifer - nostril 02/05 daily for nasal congestion Zolpidem 12/07 Hx Tablets 10mg 30tab 1 by mouth Oswald Tartrate s every at MD Jennifer - bedtime as 11/06 Ventolin HFA 03/02 Hx Aerosol 108mcg/Ac 3unit 2 puffs Oswald, t s every 4 MD Jennifer - hours as 11/16 Pulmicort 06/26 Hx Aerosol 90mcg/Act 3unit 1 Luisito Akers s inhalation MD Jennifer - twice a day 06/03 Pantoprazole 05/[address] 40mg 90tab 1 by mouth Oswald s every day MD Jennifer - 04/24 Ibuprofen 07/02 Hx Tablets 800mg 90tab take 1 Oswald s tablet MD Jennifer - daily if 04/15 Astelin 04/22 Hx Solution 137mcg/Sp 3unit instill 2 Oswald, ray s sprays in MD Jennifer - each 02/05 nostril times a day as needed Diphenhydramine 00 Hx Capsules 25mg AT Bedtime Unknown HCL /0000 - 02/25 Ibuprofen 00 Hx Tablets 400mg as Needed Unknown /0000 - 02/05 Celebrex 0000 Hx Capsules 50mg 1 by mouth HaydenMan /0000 every day MD chris - per pain 05/07 management Immunizations CPT Code Status Date Vaccine Reaction Lot # [id number] Given 04/22/2018 Flu Vaccine NOS 11105 Given 09/06/2017 Pneumococcal 23 Immunization Pt tolerated well [id number] Adult Or Immunosuppressed Patient Q2039 Given 05/07/2017 Flu Vaccine NOS Q2039 Given 04/02/2016 Flu Vaccine NOS Q2039 Given 03/29/2015 Flu Vaccine NOS 66623 Given 03/16/2014 Influenza Virus Vaccine,Quadrivalent,Split,Prese rv Free, 0.5mL,Im [address] Given 12/11/2013 Zoster (Zostavax) 14495 Given 09/28/2009 Tetanus And Diptheria Toxoids For Adult Use-preservative free 52749 Given 11/29/2008 Tdap (Adacel) Ages 7 And Above Only Q2039 Refused 04/13/2018 Flu Vaccine NOS WILL GET AT WORK Vital Signs Date Vital Result Comment 07/23/2018 11:12am Body Temperature 96.1 F Weight 246.00 lb Heart Rate 72 /min BP Systolic 120 mmHg BP Diastolic 80 mmHg Respiratory Rate 18 /min 06/10/2018 2:29pm Weight 231.12 lb Heart Rate 76 /min BP Systolic 142 mmHg BP Diastolic 74 mmHg Respiratory Rate 18 /min Height 71 inches 5'11" BMI (Body Mass Index) 32.2 kg/m2 04/25/2018 11:04am Weight 234.00 lb Heart Rate [...] Date Facility Test Result H/L Range Note Tramadol And Met, 04/25/2018 [facility] Desmethyl Tramadol 4778 1 Urine-RL Tramadol,Urine 8727 2 Hemoglobin A1c 04/20/2018 [facility] Glycohemoglobin (A1c ) 5.8 % N 4.2-6.3 3, 4 (315)- - eAG 120 mg/dL Basic (BMP) 04/20/2018 [facility] Glucose 96 mg/dL N 74 -106 (315)- - BUN 26 mg/dL High 7-18 Creatinine 1.0 mg/dL N 0.6-1.3 Glom Filtration Rate, Estimate >60 mL/min >60 If >60 mL/min >60 5 BUN/Creat 26.0 ratio Sodium 140 mmol/L N 136-145 Potassium 4.0 mmol/L N 3.5-5.1 Chloride 105 mmol/L N 98-107 Carbon Dioxide 30 mmol/L N 21-32 Anion Gap 5 mEq/L Low 8-16 Calcium 8.7 mg/dL N 8.5-10.1 Laboratory test 04/20/2018 [facility] Prostate 0.40 ng/ mL < 4.0 6 finding (315)- - Specific Antigen Liver Function 04/20/2018 [facility] Total Protein 7.1 g/ dL N 6.4-8.2 Tests (315)- - Albumin 3.6 g/dL N 3.4-5.0 Globulin 3.5 g/dL N 1.9-4.3 Alb/Glob 1.0 ratio Bilirubin,Total 0.4 mg/dL N 0.2-1.0 Bilirubin,Direct 0.1 mg/dL N 0.0-0.2 Bilirubin,Indirect 0.3 mg/dL N 0.0-0.9 Sgot/Ast 30 U/L N 15-37 SGPT/Alt 33 U/L N 12-78 Alkaline Phosphatase 77 U/L N 45-117 LDL Cholesterol 04/20/2018 [facility] Cholesterol 205 mg/ dL High <200 7 Profile (315)- - Triglycerides 65 mg/dL <150 8 HDL Cholesterol 65 mg/dL >40 9 LDL-Cholesterol 127 mg/dL < 100 10 Laboratory test 02/21/2018 [facility] Urn Culture Hold URINE SPECIMEN A 11 finding <SEE NOTE> Urinalysis 02/21/2018 [facility] Color YELLOW Appearance CLEAR Spec Grav Urine 1.014 (1.003-1.030) PH Urine 6.0 (5.0-7.5) Leuk Esterase NEGATIVE (Neg) Nitrite Urine NEGATIVE (Neg) Protein Urine NEGATIVE (Neg) Glucose Urine NEGATIVE (Neg) Ketone Urine NEGATIVE (Neg) Urobilinogen 0.2 mg/dL (0-1.0) Bilirubin Urine NEGATIVE (Neg) Blood/HGB Urine NEGATIVE (Neg) 12 CBC With Diff 02/21/2018 [facility] WBC 9.6 10*3/uL (4.1-11.0) RBC 5.61 10*6/uL (4.60-6.10) HGB 16.5 g/dL (13.5-18.0) HCT 49.5 % (41.0-53.0) MCV 88.1 fL (80.0-95.0) MCH 29.4 pg (27.0-32.0) MCHC 33.3 g/dL (32.0-36.0) RDW 13.8 % (10.5-14.5) PLT 154 10*3/uL (150-450) MPV 9.3 fL (7.1-10.7) Neut % 83.4 % High (35.0-75.0) Lymph % 9.4 % Low (16.0-52.0) [place] % 5.9 % (0.0-8.0) Eos % 0.9 % (0.0-5.0) Baso % 0.4 % (0.0-4.0) Neut # 8.0 10*3/uL High (1.8-7.7) Lymph # 0.9 10*3/uL Low (1.2-4.8) [place] # 0.6 10*3/uL (0.0-0.8) Eos # 0.1 10*3/uL (0.0-0.5) Baso # 0.0 10*3/uL (0.0-0.2) 13 CMP 02/21/2018 [facility] Sodium 141 mmol/L (136-145) Potassium 3.9 [...] >60 ml/min/1.73m2 (>59) GFR Interpretation (SEE NOTE) 14 Laboratory test finding 02/21/2018 [facility] Magnesium 2.2 mg/dL (1.7-2.4 ) 15 NT Pro BNP 13 pg/mL (0-125) 16 TSH,Ultrasensitive 2.881 mIU/L (0.360-4.170) 17 Laboratory test 02/21/2018 [facility] Poc Troponin I <0.02 (0.00-0.10) 18 finding ng/mL Laboratory test 09/04/2017 [facility] Prostate 0.58 < 4.0 19, 20 finding (315)- - Specific ng/mL Antigen Lipid 09/04/2017 [facility] Cholesterol 170 mg/dL < 200 21 (315)- - Triglycerides 43 mg/dL <150 22 HDL Cholesterol 66 mg/dL >40 23 LDL-Cholesterol 95 mg/dL < 100 24 Hemoglobin A1c 09/04/2017 [facility] Glycohemoglobin (A1c ) 5.9 % N 4.2-6.3 25 (315)- - eAG 123 mg/dL Comprehensive 09/04/2017 [facility] Glucose 105 mg/dL N 74-106 Metabolic-RL (315)- - BUN 27 mg/dL High 7-18 Creatinine 0.9 mg/dL N 0.6-1.3 Glom Filtration Rate, Estimate >60 mL/min >60 If >60 mL/min >60 26 BUN/Creat 30.0 ratio Sodium 140 mmol/L N [...] 74 U/L N 45-117 [facility] Hemoglobin A1c 5.9 % 4.1-5.9 Estimated Average Glucose Calc 123 mg/dL 71-140 Basic (BMP) 05/28/2017 [facility] Sodium 140 mmol/L 135-146 27 Potassium 4.1 mmol/L 3.5-5.2 Chloride# 102 mmol/L 97-110 28 Carbon Dioxide 30 mmol/L 24-34 Glucose 85 mg/dL 70-105 Creatinine 1.0 mg/dL 0.5-1.4 Calcium 9.8 mg/dL 8.5-10.2 Non Shanell Egfr >60 >60 29 Shanell Egfr >60 >60 30 Anion Gap 8 mmol/L 7-16 31 BUN 25 mg/dL 6-26 Lipid Treatment 05/28/2017 [facility] Cholesterol 231 mg/dL High 50-199 Triglycerides 75 mg/dL 30-200 HDL 75 mg/dL High 29-71 32 Chol/ HDL Ratio 3.1 ratio Low 4.0-6.7 VLDL 15 mg/dL 2-29 LDL (Calc) 141 mg/dL High 20-99 33 Alt 25 U/L 3-42 Ast 25 U/L 8-42 Hemoglobin A1c [facility] Hemoglobin A1c 6.0 % High 4.1-5.9 34 Estimated Average Glucose Calc 126 71-140 Laboratory test finding 02/19/2017 [facility] TSH 3.44 uIU/mL 0.35-4.94 Comprehensive Met Panel-FCMG 02/19/2017 [facility] Sodium 141 mmol/L 135- 146 35 Potassium 3.8 mmol/L 3.5-5.2 Chloride# 102 mmol/L 97-110 36 Carbon Dioxide 30 mmol/L 24-34 Glucose 106 mg/dL High 70-105 BUN 24 mg/dL 6-26 Creatinine 1.1 mg/dL 0.5-1.4 Calcium 9.6 mg/dL 8.5-10.2 Total Protein 6.5 g/dL 6.0-8.0 Albumin 4.2 g/dL 3.6-4.9 Globulin 2.3 g/dL 2.0-3.5 A/G Ratio 1.8 Ratio 1.0-2.2 Total Bilirubin 0.6 mg/dL 0.1-1.3 Alkaline Phosphatase 65 U/L 24-140 Alt 32 U/L 3-42 Ast 23 U/L 8- Shanell Egfr >60 >60 37 Non Shanell Egfr >60 >60 38 Anion Gap 9 mmol/L 7-16 39 Hemoglobin A1c 11/02/2016 [facility] Hemoglobin A1c 5.7 % 4.1-5.9 40 Estimated Average Glucose Calc 117 71-140 Basic (BMP) 11/02/2016 [facility] Sodium 140 mmol/L 135-146 41 Potassium 4.1 mmol/L 3.5-5.2 Chloride# 105 mmol/L 97-110 42 Carbon Dioxide 27 mmol/L 24-34 Glucose 106 mg/dL High 70-105 BUN 27 mg/dL High 6-26 Creatinine 1.0 mg/dL 0.5-1.4 Calcium 9.6 mg/dL 8.5-10.2 Non Shanell Egfr >60 >60 43 Shanell Egfr >60 >60 44 Anion Gap 12 mmol/L 7- 45 Laboratory test 11/02/2016 [facility] Hepatitis C Virus NONREACTIVE Nonreactive finding Antibody Lipid Treatment 11/02/2016 [facility] Cholesterol 204 mg/dL High 50-199 Triglycerides 53 mg/dL 30-200 HDL 63 mg/dL 29-71 46 Chol/ HDL Ratio 3.2 ratio Low 4.0-6.7 VLDL 11 mg/dL 2-29 LDL (Calc) 130 mg/dL High 20-99 47 Alt 21 U/L 3-42 Ast 24 U/L 8-42 Comprehensive Metabolic (CMP) 07/30/2016 [facility] Sodium 142 mmol/L 135- 146 48, 49 Potassium 3.9 mmol/L 3.5-5.2 Chloride# 106 mmol/L 97-110 50 Carbon Dioxide 29 mmol/L 24-34 Glucose 91 mg/dL 70-105 BUN 23 mg/dL 6-26 Creatinine 1.0 mg/dL 0.5-1.4 Calcium 9.4 mg/dL 8.5-10.2 Total Protein 6.1 g/dL 6.0-8.0 Albumin 4.1 g/dL 3.6-4.9 Globulin 2.0 g/dL 2.0-3.5 A/G Ratio 2.1 Ratio 1.0-2.2 Total Bilirubin 0.5 mg/dL 0.1-1.3 Alkaline Phosphatase 61 U/L 24-140 Alt 22 U/L 3-42 Ast 23 U/L 8-42 Shanell Egfr >60 >60 51 Non Shanell Egfr >60 >60 52 Anion Gap 11 mmol/L 7-16 53 Laboratory test finding 07/30/2016 [facility] Hemoglobin A1c 5.8 % 4.1-5.9 Esr 3 [...] 4.34 uIU/mL 0.35-4.94 PSA 0.380 ng/mL 0.000-4.000 54 Lipid 07/30/2016 [facility] Cholesterol 199 mg/dL 50-199 Triglycerides 55 mg/dL 30-200 HDL 75 mg/dL High 29-71 55 Chol/ HDL Ratio 2.6 ratio Low 4.0-6.7 VLDL 11 mg/dL 2-29 LDL (Calc) 113 mg/dL High 20-99 56 Laboratory test finding 04/15/2016 [facility] Esr 2 [...] 7 mmol/L 6-14 Shanell Egfr >60 >60 57 Non Shanell Egfr >60 >60 58 CBC With Auto Diff 04/15/2016 [facility] WBC 6.4 K/uL 4.1-11.0 RBC 5.11 M/uL [...] (BMP) 01/30/2016 [facility] Sodium 139 mmol/L 134-142 59 Potassium 4.3 mmol/L 3.5-5.2 Chloride 103 mmol/L 97-109 Carbon Dioxide 30 mmol/L 24-34 Glucose 96 mg/dL 70-105 BUN 29 mg/dL High 6-26 Creatinine 1.0 mg/dL 0.5-1.4 Calcium 9.9 mg/dL 8.5-10.2 Anion Gap 10 mmol/L 6-14 Non Shanell Egfr >60 >60 60 Shanell Egfr >60 >60 61 Laboratory test [facility] Hemoglobin A1c 5.6 % 4.1-5.9 finding Hemoglobin A1c 07/27/[address] [facility] Glycohemoglobin (A1c ) 6.1 % 4.2-6.3 62 (315)- - eAG 128 mg/dL Laboratory test 07/27/2015 [facility] Prostate 0.35 ng/ mL 63 finding (315)- - Specific Antigen Basic Metabolic 07/27/2015 [facility] Glucose 112 mg/dL High 74-106 Panel (315)- - BUN 20 mg/dL High 7-18 Creatinine 1.0 mg/dL 0.6-1.3 Glom Filtration Rate, Estimate >60 mL/min >60 If >60 mL/min >60 64 BUN/Creat 20.0 ratio Sodium 140 mmol/L 136-145 Potassium 4.2 mmol/L 3.5-5.1 Chloride 106 mmol/L 98-107 Carbon Dioxide 29 mmol/L 21-32 Anion Gap 5 mEq/L Low 8-16 Calcium 8.6 mg/dL 8.5-10.1 BMP (Basic) 05/06/2015 [facility] Glucose 93 mg/dL 74- 106 (315)- - BUN 26 mg/dL High 7-18 Creatinine 0.9 mg/dL 0.6-1.3 Glom Filtration Rate, Estimate >60 mL/min >60 If >60 mL/min >60 65 BUN/Creat 28.8 ratio Sodium 139 mmol/L 136-145 Potassium 3.6 mmol/L 3.5-5.1 Chloride 104 mmol/L 98-107 Carbon Dioxide 28 mmol/L 21-32 Anion Gap 7 mEq/L Low 8-16 Calcium 9.5 mg/dL 8.5-10.1 Glycohemoglobin A1c 05/06/[address] [facility] Glycohemoglobin 5.8 % 4.2-6.3 66 (315)- - (A1c) eAG 120 mg/dL Laboratory test 05/06/[address] [facility] Prostate 1.00 ng/ mL 67 finding (315)- - Specific Antigen Basic Metabolic 11/15/2014 [facility] Glucose 97 mg/dL 74-106 Panel (315)- - BUN 28 mg/dL High 7-18 Creatinine 1.0 mg/dL 0.6-1.3 Glom Filtration Rate, Estimate >60 mL/min >60 If >60 mL/min >60 68 BUN/Creat 28.0 ratio Sodium 139 mmol/L 136-145 Potassium 3.9 mmol/L 3.5-5.1 Chloride 104 mmol/L 98-107 Carbon Dioxide 30 mmol/L 21-32 Anion Gap 5 mEq/L Low 8-16 Calcium 9.1 mg/dL 8.5-10.1 Glycohemoglobin A1c 11/15/[address] [facility] Glycohemoglobin 5.5 % 4.2-6.3 69 (315)- - (A1c) eAG 111 mg/dL CBC W/Automated Diff 10/02/2014 [facility] White Blood 6.2 K/uL 3.4-10.5 (315)- - [...] % 33.0-73.0 Lymph % 18.0 % 17.0-56.0 [place] % 7.8 % 0.0-10.0 Eo% 2.1 % 0.0-5.0 Bas% 0.7 % 0.1-1.0 Neut# 4.39 K/uL 1.8-7.0 Lymph # 1.11 K/uL Low 1.8-7.0 [place] # 0.48 K/uL 0.0-0.8 Eos # 0.13 K/uL 0.0-0.5 Baso # 0.04 K/uL Low 0.1-0.2 Comprehensive Metabolic 09/25/[address] [facility] Glucose 138 mg/dL High 74-106 Panel (315)- - BUN 19 mg/dL High 7-18 Creatinine 1.1 mg/dL 0.6-1.3 Glom Filtration Rate, Estimate >60 mL/min >60 If >60 mL/min >60 70 BUN/Creat 17.2 ratio Sodium 143 mmol/L 136-145 [...] Phosphatase 67 U/L 45-117 Laboratory test 09/25/2014 [facility] Lipase 94 U/L 73 -393 finding (315)- - CBC 09/25/2014 [facility] White Blood 17.2 K/uL High 3.4-10.5 (315)- [...] Count 8.0 3.4-10.5 Basic Metabolic Panel 09/17/2014 [facility] Glucose 100 mg/dL 74-106 (315)- - BUN 16 mg/dL 7-18 Creatinine 1.0 mg/dL 0.6-1.3 Glom Filtration Rate, Estimate >60 mL/min >60 If >60 mL/min >60 71 BUN/Creat 16.0 ratio Sodium 142 mmol/L 136-145 Potassium 3.6 mmol/L 3.5-5.1 Chloride 107 mmol/L 98-107 Carbon Dioxide 27 mmol/L 21-32 Anion Gap 8 mEq/L 8-16 Calcium 8.6 mg/dL 8.5-10.1 Laboratory test finding 09/17/2014 N2N/[facility] Import BUN/Creatinine Ratio 16.0 Calcium Level 8.6 8.5-10.1 Carbon Dioxide Level 27 21-32 Chloride Level 107 98-107 Sodium Level 142 136-145 CBC 09/17/2014 [facility] White Blood Count 8.5 K/uL 3.4-10.5 [...] Variation 13.9 11.6-15.8 Basic Metabolic Panel 09/17/2014 [facility] Glucose 120 mg/dL High 74-106 (315)- - BUN 17 mg/dL 7-18 Creatinine 0.8 mg/dL 0.6-1.3 Glom Filtration Rate, Estimate >60 mL/min >60 If >60 mL/min >60 72 BUN/Creat 21.2 ratio Sodium 141 mmol/L 136-145 Potassium 3.6 mmol/L 3.5-5.1 Chloride 108 mmol/L High 98-107 Carbon Dioxide 26 mmol/L 21-32 Anion Gap 7 mEq/L Low 8-16 Calcium 8.4 mg/dL Low 8.5-10.1 CBC 09/17/2014 [facility] White Blood Count 9.1 K/uL [...] Volume 11.3 fL High 6.6-10.6 Hemoglobin/Hematocrit 09/16/[address] [facility] Hemoglobin 13.2 gm/dL 12.8-17.0 (315)- - Hematocrit 39.6 % 38.0-48.0 CBC W/Automated Diff 09/16/2014 [facility] White Blood 9.9 K/uL 3.4-10.5 (315)- - [...] 33.0-73.0 Lymph % 9.8 % Low 17.0-56.0 [place] % 4.4 % 0.0-10.0 Eo% 0.2 % 0.0-5.0 Bas% 0.2 % 0.1-1.0 Neut# 8.48 K/uL High 1.8-7.0 Lymph # 0.97 K/uL Low 1.8-7.0 [place] # 0.44 K/uL 0.0-0.8 Eos # 0.02 [...] Negative Total Bilirubin 0.3 0.2-1.0 Protime 09/16/2014 [facility] Protime 12.8 seconds 12.0-14.4 (315)- - Inr 1.0 0.9-1.1 73 Hemoglobin/Hematocrit 09/16/2014 [facility] Hemoglobin 14.8 gm/dL 12.8-17.0 (315)- - Hematocrit 43.4 % 38.0-48.0 Occult 09/16/2014 [facility] Stool Occult POSITIVE High Negative Blood,Stool (315)- - Blood-Single Spec Liver Function 09/16/2014 [facility] Total Protein 6.9 g/ dL 6.4-8.2 Tests (315)- - Albumin 3.7 g/dL 3.4-5.0 Globulin 3.2 g/dL 1.9-4.3 Alb/Glob 1.2 ratio Bilirubin,Total 0.3 mg/dL 0.2-1.0 Bilirubin,Direct 0.1 mg/dL 0.0-0.2 Bilirubin,Indirect 0.2 mg/dL 0.0-0.9 Sgot/Ast 27 U/L 15-37 SGPT/Alt 27 U/L 12-78 Alkaline Phosphatase 81 U/L 45-117 Basic Metabolic Panel 09/16/2014 [facility] Glucose 101 mg/dL 74-106 (315)- - BUN 32 mg/dL High 7-18 Creatinine 1.0 mg/dL 0.6-1.3 Glom Filtration Rate, Estimate >60 mL/min >60 If >60 mL/min >60 74 BUN/Creat 32.0 ratio Sodium 138 mmol/L 136-145 Potassium 3.7 mmol/L 3.5-5.1 Chloride 105 mmol/L 98-107 Carbon Dioxide 25 mmol/L 21-32 Anion Gap 8 mEq/L 8-16 Calcium 9.0 mg/dL 8.5-10.1 Laboratory test 09/16/[address] [facility] Lipase 127 U/L 73-393 finding (315)- - CBC W/Automated 09/16/2014 [facility] White Blood 9.5 K/ uL 3.4-10.5 Diff [...] % 33.0-73.0 Lymph % 17.8 % 17.0-56.0 [place] % 7.1 % 0.0-10.0 Eo% 2.3 % 0.0-5.0 Bas% 0.4 % 0.1-1.0 Neut# 6.86 K/uL 1.8-7.0 Lymph # 1.69 K/uL Low 1.8-7.0 [place] # 0.67 K/uL 0.0-0.8 Eos # 0.22 K/uL 0.0-0.5 Baso # 0.04 K/uL Low 0.1-0.2 Type And Screen 09/16/2014 [facility] Patient Blood Type O POS (315)- - Antibody Screen Negative Negative Laboratory test 09/16/2014 [facility] Crossmatch See Note 75 finding (315)- - Hemoglobin/Hematocr 09/16/2014 [facility] Hemoglobin 14.1 gm/dL 12.8-17.0 it (315)- - Hematocrit 41.6 % 38.0-48.0 LDL Cholesterol Profile 03/19/2014 N2N/CCD Import Cholesterol 183 mg/dL 76 HDL Cholesterol 58 mg/dL 77 LDL-Cholesterol 110 mg/dL 78 Triglycerides 77 mg/dL 79 Laboratory test finding 03/19/2014 N2N/CCD Import Anion Gap 11 mEq/L 8- 16 BUN 28 mg/dL High 7-18 BUN/Creat 25.4 ratio Calcium 9.4 mg/dL 8.5-10.1 Carbon Dioxide 27 mmol/L 21-32 Chloride 107 mmol/L 98-107 Creatinine 1.1 mg/dL 0.6-1.3 Glom Filtration Rate, Estimate >60 mL/min >60 Glucose 103 mg/dL 74-106 Glycohemoglobin (A1c) 5.7 % 4.2-6.3 80 Hematocrit 47.0 % 38.0-48.0 Hemoglobin 16.0 gm/dL 12.8-17.0 If >60 mL/min >60 81 Mean Cell Volume 88.3 fl 80.0-96.0 Mean Corpuscular HGB 30.1 pg 27.0-33.0 Mean Corpuscular HGB Conc 34.0 g/dL 31.7-36.0 Mean Platelet Volume 11.3 fL High 6.6-10.6 Platelet Count 152 K/uL 150-400 Potassium 3.7 mmol/L 3.5-5.1 Prostate Specific Antigen 0.41 ng/mL 82 Red Blood Count 5.32 M/uL 4.20-5.80 Red [...] Import Troponin-I < 0.02 ng/mL 0.00- 0.50 83 finding Laboratory test 04/09/2013 N2N/CCD Import Troponin-I < 0.02 ng/mL 0.00- 0.50 84 finding Laboratory test 04/08/2013 N2N/CCD Import Alb/Glob [...] 92 mg/dL 76-115 If >60 mL/min >60 85 Potassium 3.8 mmol/L 3.5-5.1 Relative % Index 2.2 % <5 86 SGPT/Alt 40 U/L 30-65 Sgot/Ast 28 U/L 16-40 Sodium 140 mmol/L 136-145 Total Protein 7.3 g/dL 6.3-8.0 Troponin-I < 0.02 ng/mL 0.00-0.50 87 CBS W/Automated Diff 04/08/2013 N2N/CCD Import Bas% [...] Mean Platelet Volume 11.6 fL High 6.6-10.6 [place] # 0.63 K/uL High 0.0-0.6 [place] % 6.9 % 0.0-10.0 Neut# 6.53 K/uL [...] 16.2 gm/dL 12.8-17.0 If >60 mL/min >60 88 Lipase 154 U/L 28-380 Mean Cell Volume [...] - Dipstick Negative mg/dL Negative Urine Specific [place] >=1.030 1.010-1.030 Urine Urobilinogen - Dipstick 0.2 E.U./dL 0.2-1.0 White Blood Count 8.0 K/uL 3.4-10.5 Laboratory test 11/17/2012 N2N/CCD Import Throat Culture See Note 89 finding Complete 1 Unit: ng/mL Performed by [facility], [address] [place] [id number] [email or web address], Shorty Shea MD, Lab. Director 2 Unit: ng/mL INTERPRETIVE INFORMATION: Tramadol and Metabolite, Urine Methodology: Quantitative Liquid Chromatography-Tandem Mass Spectrometry Positive cutoff: Tramadol: 25 ng/mL o-desmethyltramadol: 25 ng/mL For medical purposes only; not valid for forensic use. The presence of metabolite(s) without parent drug is common and may indicate use of parent drug during the prior week. The absence of expected drug(s) and/or drug metabolite(s) may indicate non-compliance, inappropriate timing of specimen collection relative to drug administration, poor drug absorption, diluted/adulterated urine, or limitations of testing. The concentration value must be greater than or equal to the cutoff to be reported as positive. Interpretive questions should be directed to the laboratory. Test developed and characteristics determined by [facility]. See Compliance Statement B: [employer] Unless otherwise specified, testing performed by [facility] [address] [place] [id number] R73.O1,E78.2,Z12.5 4 Elevated levels of HbA1c suggest the need for more aggressive treatment of glycemia. The [place] [employer] recommends that a primary goal of therapy should be a HbA1c of <7% and that physicians should re-evaluate the treatment regimen in patients with HbA1c values consistently >8%. 5 Note: Persistent reduction for 3 months or more in an eGFR <60 mL/min/1.73 m2 defines CKD. Patients with eGFR values >/=60 mL/min/1.73 m2 may also have CKD if evidence of persistent proteinuria is present. The original MDRD equation for estimated GFR is not valid for patients less than 18 years of age. Additional information may be found at www.kdoqi.org. 6 THIS ASSAY IS NOT INTENDED A CANCER SCREENING TEST The concentration of PSA in a given specimen, determined with assays from different manufacturers, can vary due to differences in assay methods and reagent specificity. Values obtained from different assay methods cannot be used interchangeably. Method: [employer] [place] Chemiluminescent immunoassay. 7 Reference Guidelines*: Desirable: ........... < 200 mg/dL Borderline High: ..... 200-239 mg/dL High: ................ >=240 mg/dL * The National Cholesterol Education Program (NCEP) 8 Reference Guidelines*: Normal: ............. < 150 mg/dL Borderline High: .... 150-199 mg/dL High: ............... 200-499 mg/dL Very High: .......... > 500 mg/dL * Source: National Cholesterol Education Program (NCEP) 9 Reference Guidelines*: Low HDL: ..... < 40 mg/dL Normal: ..... 40-60 mg/dL Desirable: ... > 60 mg/dL *The National Cholesterol Education Program(NCEP) 10 Reference Guidelines*: Optimal:........... <100 mg/dL Near Optimal....... 100-129 mg/dL Borderline High.... 130-159 mg/dL High............... 160-189 mg/dL Very High.......... >=190 mg/dL * Source: National Cholesterol Education Program (NCEP) 11 URINE SPECIMEN AVAILABLE IN LAB FOR 24 HOURS FOR ADD ON CULTURE Unless otherwise specified, testing performed by [facility] [address] [place] [address] [id number] Unless otherwise specified, testing performed by [facility] [address] [place] [address] [id number] 13 Unless otherwise specified, testing performed by [facility] [address] [place] [address] 14 NORMAL KIDNEY FUNCTION OR MILD DISEASE - GFR >OR=60 CHRONIC KIDNEY DISEASE - GFR 15 - 59 RENAL FAILURE - GFR <15 Est. GFR calculation based on the MDRD study equation, which assumes a steady state for creatinine. Est. GFR should not be used for medication dosing. Unless otherwise specified, testing performed by [facility] [address] [place] [address] 15 Unless otherwise specified, testing performed by [facility] [address] [place] [address] 16 Unless otherwise specified, testing performed by [facility] [address] [place] [address] 17 PERFORMED AT [address] [place] [address] Unless otherwise specified, testing performed by [facility] [address] [place] [address] 18 TROPONIN LEVELS TWO TIMES THE UPPER LIMIT OF NORMAL ARE MORE PREDICTIVE OF MYOCARDIAL INFARCTION THAN LESSER ELEVATIONS WHICH CAN BE DUE TO MYOCARDIAL DAMAGE OR STRUCTURAL HEART DISEASE IN THE ABSENCE OF ANY ACUTE PROCESS ([facility] 361:9, 2009) PERFORMED BY [facility] Unless otherwise specified, testing performed by [facility] [address] [place] [address] 19 R73.01 E78.2 Z12.5 20 THIS ASSAY IS NOT INTENDED A CANCER SCREENING TEST The concentration of PSA in a given specimen, determined with assays from different manufacturers, can vary due to differences in assay methods and reagent specificity. Values obtained from different assay methods cannot be used interchangeably. Method: [employer] Chemiluminescent immunoassay. 21 Reference Guidelines*: Desirable: ........... < 200 mg/dL Borderline High: ..... 200-239 mg/dL High: ................ >=240 mg/dL * The National Cholesterol Education Program (NCEP) 22 Reference Guidelines*: Normal: ............. < 150 mg/dL Borderline High: .... 150-199 mg/dL High: ............... 200-499 mg/dL Very High: .......... > 500 mg/dL * Source: National Cholesterol Education Program (NCEP) 23 Reference Guidelines*: Low HDL: ..... < 40 mg/dL Normal: ..... 40-60 mg/dL Desirable: ... > 60 mg/dL *The National Cholesterol Education Program(NCEP) 24 Reference Guidelines*: Optimal:........... <100 mg/dL Near Optimal....... 100-129 mg/dL Borderline High.... 130-159 mg/dL High............... 160-189 mg/dL Very High.......... >=190 mg/dL * Source: National Cholesterol Education Program (NCEP) 25 Elevated levels of HbA1c suggest the need for more aggressive treatment of glycemia. The [place] Diabetes Association recommends that a primary goal of therapy should be a HbA1c of <7% and that physicians should re-evaluate the treatment regimen in patients with HbA1c values consistently >8%. 26 Note: Persistent reduction for 3 months or more in an eGFR <60 mL/min/1.73 m2 defines CKD. Patients with eGFR values >/=60 mL/min/1.73 m2 may also have CKD if evidence of persistent proteinuria is present. The original MDRD equation for estimated GFR is not valid for patients less than 18 years of age. Additional information may be found at [email or web address]. 27 Updated reference range on new analyzer 28 Updated reference range on new analyzer 29 Concerning GFR Guidelines: Normal function or mild [...] drugs that are excreted by the kidneys. 30 Concerning GFR Guidelines for Americans: Normal function or mild renal disease, if clinically at risk: >/=60 mL/min Moderately decreased: 30-59 Severely decreased: 15-29 Renal failure: <15 31 Updated reference range on new analyzer 32 Per NCEP ATP III Guidelines: Results lower than 40 mg/dL are suggestive of increased risk for coronary artery disease. Results > or=to 60 mg/dL are considered a negative risk factor. 33 Per NCEP ATP III Guidelines: Normal Population <130 Patients with medical conditions: CHD/DM Optimal: <100 Borderline high: 130-159 High: 160-189 Very high: >189 34 3mo 35 Updated reference range on new analyzer 36 Updated reference range on new analyzer 37 Concerning GFR Guidelines for Americans: Normal function or mild renal disease, if clinically at risk: >/=60 mL/min Moderately decreased: 30-59 Severely decreased: 15-29 Renal failure: <15 38 Concerning GFR Guidelines: Normal function or mild [...] drugs that are excreted by the kidneys. 39 Updated reference range on new analyzer 40 3 mos 41 Updated reference range on new analyzer 42 Updated reference range on new analyzer 43 Concerning GFR Guidelines: Normal function or mild [...] drugs that are excreted by the kidneys. 44 Concerning GFR Guidelines for Americans: Normal function or mild renal disease, if clinically at risk: >/=60 mL/min Moderately decreased: 30-59 Severely decreased: 15-29 Renal failure: <15 45 Updated reference range on new analyzer 46 Per NCEP ATP III Guidelines: Results lower than 40 mg/dL are suggestive of increased risk for coronary artery disease. Results > or=to 60 mg/dL are considered a negative risk factor. 47 Per NCEP ATP III Guidelines: Normal Population <130 Patients with medical conditions: CHD/DM Optimal: <100 Borderline high: 130-159 High: 160-189 Very high: >189 48 after 07/26 49 Updated reference range on new analyzer 50 Updated reference range on new analyzer 51 Concerning GFR Guidelines for Americans: Normal function or mild renal disease, if clinically at risk: >/=60 mL/min Moderately decreased: 30-59 Severely decreased: 15-29 Renal failure: <15 52 Concerning GFR Guidelines: Normal function or mild [...] drugs that are excreted by the kidneys. 53 Updated reference range on new analyzer 54 Beginning 07/19/06 PSA values assayed at [facility] uses chemiluminescence methodology manufactured by [employer] for use on the DXI analyzer. Values obtained with different assay methods or kits can not be used interchangeably. Serum PSA measurement is not an absolute test for malignancy. The PSA value should be used in conjunction with information available from clinical evaluation and other diagnostic procedures. 55 Per NCEP ATP III Guidelines: Results lower than 40 mg/dL are suggestive of increased risk for coronary artery disease. Results > or=to 60 mg/dL are considered a negative risk factor. 56 Per NCEP ATP III Guidelines: Normal Population <130 Patients with medical conditions: CHD/DM Optimal: <100 Borderline high: 130-159 High: 160-189 Very high: >189 57 Concerning GFR Guidelines for Americans: Normal function or mild renal disease, if clinically at risk: >/=60 mL/min Moderately decreased: 30-59 Severely decreased: 15-29 Renal failure: <15 58 Concerning GFR Guidelines: Normal function or [...] that are excreted by the kidneys. 59 6 mos 60 Concerning GFR Guidelines: Normal function or mild [...] drugs that are excreted by the kidneys. 61 Concerning GFR Guidelines for Americans: Normal function or mild renal disease, if clinically at risk: >/=60 mL/min Moderately decreased: 30-59 Severely decreased: 15-29 Renal failure: <15 62 Elevated levels of HbA1c suggest the need for more aggressive treatment of glycemia. The [place] [employer] Association recommends that a primary goal of therapy should be a HbA1c of <7% and that physicians should re-evaluate the treatment regimen in patients with HbA1c values consistently >8%. 63 THIS ASSAY IS NOT INTENDED A CANCER SCREENING TEST The concentration of PSA in a given specimen, determined with assays from different manufacturers, can vary due to differences in assay methods and reagent specificity. Values obtained from different assay methods cannot be used interchangeably. 64 Note: Persistent reduction for 3 months or more in an eGFR <60 mL/min/1.73 m2 defines CKD. Patients with eGFR values >/=60 mL/min/1.73 m2 may also have CKD if evidence of persistent proteinuria is present. The original MDRD equation for estimated GFR is not valid for patients less than 18 years of age. Additional information may be found at [email or web address]. 65 Note: Persistent reduction for 3 months or more in an eGFR <60 mL/min/1.73 m2 defines CKD. Patients with eGFR values >/=60 mL/min/1.73 m2 may also have CKD if evidence of persistent proteinuria is present. The original MDRD equation for estimated GFR is not valid for patients less than 18 years of age. Additional information may be found at [email or web address]. 66 Elevated levels of HbA1c suggest the need for more aggressive treatment of glycemia. The [place] [employer] Association recommends that a primary goal of therapy should be a HbA1c of <7% and that physicians should re-evaluate the treatment regimen in patients with HbA1c values consistently >8%. 67 THIS ASSAY IS NOT INTENDED A CANCER SCREENING TEST The concentration of PSA in a given specimen, determined with assays from different manufacturers, can vary due to differences in assay methods and reagent specificity. Values obtained from different assay methods cannot be used interchangeably. 68 Note: Persistent reduction for 3 months or more in an eGFR <60 mL/min/1.73 m2 defines CKD. Patients with eGFR values >/=60 mL/min/1.73 m2 may also have CKD if evidence of persistent proteinuria is present. The original MDRD equation for estimated GFR is not valid for patients less than 18 years of age. Additional information may be found at [email or web address]. 69 Elevated levels of HbA1c suggest the need for more aggressive treatment of glycemia. The [place] [employer] recommends that a primary goal of therapy should be a HbA1c of <7% and that physicians should re-evaluate the treatment regimen in patients with HbA1c values consistently >8%. 70 Note: Persistent reduction for 3 months or more in an eGFR <60 mL/min/1.73 m2 defines CKD. Patients with eGFR values >/=60 mL/min/1.73 m2 may also have CKD if evidence of persistent proteinuria is present. The original MDRD equation for estimated GFR is not valid for patients less than 18 years of age. Additional information may be found at [email or web address]. 71 Note: Persistent reduction for 3 months or more in an eGFR <60 mL/min/1.73 m2 defines CKD. Patients with eGFR values >/=60 mL/min/1.73 m2 may also have CKD if evidence of persistent proteinuria is present. The original MDRD equation for estimated GFR is not valid for patients less than 18 years of age. Additional information may be found at [email or web address]. 72 Note: Persistent reduction for 3 months or more in an eGFR <60 mL/min/1.73 m2 defines CKD. Patients with eGFR values >/=60 mL/min/1.73 m2 may also have CKD if evidence of persistent proteinuria is present. The original MDRD equation for estimated GFR is not valid for patients less than 18 years of age. Additional information may be found at [email or web address]. 73 THERAPEUTIC INR RANGE: 2.0 - 3.0 DVT, Pulmonary embolus, prophylaxis against venous thrombosis or systemic embolization in high risk patients. 2.5 - 3.5 Mechanical heart valves 74 Note: Persistent reduction for 3 months or more in an eGFR <60 mL/min/1.73 m2 defines CKD. Patients with eGFR values >/=60 mL/min/1.73 m2 may also have CKD if evidence of persistent proteinuria is present. The original MDRD equation for estimated GFR is not valid for patients less than 18 years of age. Additional information may be found at [email or web address]. 75 [id number] O POS Comp? Y <N/A> 76 Reference Guidelines*: Desirable: ........... < 200 mg/dL Borderline High: ..... 200-239 mg/dL High: ................ >=240 mg/dL * The National Cholesterol Education Program (NCEP) 77 Reference Guidelines*: Low HDL: ..... < 40 mg/dL Normal: ..... 40-60 mg/dL Desirable: ... > 60 mg/dL *The National Cholesterol Education Program(NCEP) 78 Reference Guidelines*: Optimal:........... <100 mg/dL Near Optimal....... 100-129 mg/dL Borderline High.... 130-159 mg/dL High............... 160-189 mg/dL Very High.......... >=190 mg/dL * Source: National Cholesterol Education Program ( NCEP) 79 Reference Guidelines*: Normal: ............. < 150 mg/dL Borderline High: .... 150-199 mg/dL High: ............... 200-499 mg/dL Very High: .......... > 500 mg/dL * Source: National Cholesterol Education Program (NCEP) 80 Elevated levels of HbA1c suggest the need for more aggressive treatment of glycemia. The [place] [employer] recommends that a primary goal of therapy should be a HbA1c of <7% and that physicians should re-evaluate the treatment regimen in patients with HbA1c values consistently >8%. 81 Note: Persistent reduction for 3 months or more in an eGFR <60 mL/min/1.73 m2 defines CKD. Patients with eGFR values >/=60 mL/min/1.73 m2 may also have CKD if evidence of persistent proteinuria is present. The original MDRD equation for estimated GFR is not valid for patients less than 18 years of age. Additional information may be found at [email or web address]. 82 THIS ASSAY IS NOT INTENDED A CANCER SCREENING TEST The concentration of PSA in a given specimen, determined with assays from different manufacturers, can vary due to differences in assay methods and reagent specificity. Values obtained from different assay methods cannot be used interchangeably. 83 0 - 0.5 ng/mL: No evidence of myocardial injury 0.6 - 1.4 ng/mL: Mild elevation, suggesting possible myocardial injury > 1.4 ng/mL: Consistent with myocardial injury 84 0 - 0.5 ng/mL: No evidence of myocardial injury 0.6 - 1.4 ng/mL: Mild elevation, suggesting possible myocardial injury > 1.4 ng/mL: Consistent with myocardial injury 85 Note: Persistent reduction for 3 months or more in an eGFR <60 mL/min/1.73 m2 defines CKD. Patients with eGFR values >/=60 mL/min/1.73 m2 may also have CKD if evidence of persistent proteinuria is present. The original MDRD equation for estimated GFR is not valid for patients less than 18 years of age. Additional information may be found at [email or web address]. 86 < 5%=non AMI 5 - 10%=borderline for AMI > 10%=positive for AMI FOR DIAGNOSTIC PURPOSES, THE CK-MB RESULT (MASS AND RELATIVE PERCENT INDEX) SHOULD BE USED IN CONJUNCTION WITH OTHER PERTINENT CLINICAL DATA. 87 0 - 0.5 ng/mL: No evidence of myocardial injury 0.6 - 1.4 ng/mL: Mild elevation, suggesting possible myocardial injury > 1.4 ng/mL: Consistent with myocardial injury 88 Note: Persistent reduction for 3 months or more in an eGFR <60 mL/min/1.73 m2 defines CKD. Patients with eGFR values >/=60 mL/min/1.73 m2 may also have CKD if evidence of persistent proteinuria is present. The original MDRD equation for estimated GFR is not valid for patients less than 18 years of age. Additional information may be found at [email or web address]. 89 NORMAL THROAT SHAY Procedures Date Code Description Status 06/10/2018 42046 Remove Impact Cerumen Irrigation/Lavage Completed 09/06/2017 00405 Brief Emotional/Behav Assessment W/ Scoring Doc Per Completed Standard Inst 06/03/2017 46176 Measure Blood Oxygen Level Single Determination Completed 02/25/2017 96710 Measure Blood Oxygen Level Single Determination Completed 04/15/2016 35336 Electrocardiogram Complete Completed 06/26/2015 53001 Measure Blood Oxygen Level Single Determination Completed 01/14/2015 74404 Measure Blood Oxygen Level Single Determination Completed 05/24/2012 [id number] Colonoscopy Completed Encounters Type Date Location Provider Dx Diagnosis Office Visit 04/25/2018 [facility] Jennifer Akers MD K21.9 Gastro-esophageal 11:00a reflux disease without esophagitis R73.01 Impaired fasting glucose M54.2 Cervicalgia M54.30 Sciatica, unspecified side J30.9 Allergic rhinitis, unspecified K59.00 Constipation, unspecified M79.7 Fibromyalgia J45.20 Mild intermittent asthma, uncomplicated E78.2 Mixed hyperlipidemia Z68.32 Body mass index (BMI) 32.0-32.9, adult Office Visit 09/06/2017 11:00a Jennifer Daniel MD Z68.33 Body mass index (BMI) 33.0-33.9, adult Z23 Encounter for immunization K21.9 Gastro-esophageal reflux disease without esophagitis R73.01 Impaired fasting glucose M54.2 Cervicalgia M54.30 Sciatica, unspecified side J30.9 Allergic rhinitis, unspecified K59.00 Constipation, unspecified M79.7 Fibromyalgia J45.20 Mild intermittent asthma, uncomplicated E78.2 Mixed hyperlipidemia Z12.5 Encounter for screening for malignant neoplasm of prostate Z13.89 Encounter for screening for other disorder Office Visit 06/03/2017 9:15a Jennifer Daniel MD K21.9 Gastro- esophageal reflux disease without esophagitis R73.01 Impaired fasting glucose M54.2 Cervicalgia M54.30 Sciatica, unspecified side J30.9 Allergic rhinitis, unspecified K59.00 Constipation, unspecified M79.7 Fibromyalgia J45.20 Mild intermittent asthma, uncomplicated E78.2 Mixed hyperlipidemia Z12.5 Encounter for screening for malignant neoplasm of prostate S56.103A Unsp inj flexor musc/fasc/tend r mid fngr at [facility], init Office Visit 02/25/2017 9:00a Jennifer Daniel MD K21.9 Gastro- esophageal reflux [...] E78.2 Mixed hyperlipidemia Office Visit 08/06/2016 8:45a [facility] Jennifer Akers MD K21.9 Gastro- esophageal reflux disease without esophagitis R73.01 Impaired fasting glucose M54.2 Cervicalgia M54.30 Sciatica, unspecified side J30.9 Allergic rhinitis, unspecified K59.00 Constipation, unspecified M79.7 Fibromyalgia J45.20 Mild intermittent asthma, uncomplicated Z11.59 Encounter for screening for other viral diseases E78.2 Mixed hyperlipidemia Office Visit 04/15/2016 8:30a [facility] Jennifer Akers MD R00.0 Tachycardia, unspecified Office Visit 02/06/2016 8:00a [facility] Jennifer Akers MD K21.9 Gastro- esophageal reflux disease without esophagitis R73.01 Impaired fasting glucose M54.2 Cervicalgia M54.30 Sciatica, unspecified side J30.9 Allergic rhinitis, unspecified K59.00 Constipation, unspecified M79.7 Fibromyalgia J45.20 Mild intermittent asthma, uncomplicated Z12.5 Encounter for screening for malignant neoplasm of prostate Z13.220 Encounter for screening for lipoid disorders Office Visit 07/30/2015 1:15p [facility] Jennifer Akers MD K21.9 Gastro- esophageal reflux disease without esophagitis R73.01 Impaired fasting glucose M54.2 Cervicalgia M54.30 Sciatica, unspecified side J30.9 Allergic rhinitis, unspecified J45.909 Unspecified asthma, uncomplicated K59.00 Constipation, unspecified M79.7 Fibromyalgia Office Visit 06/26/2015 11:00a [facility] Jennifer Akers MD J01.90 Acute sinusitis, unspecified Office Visit 06/12/2015 10:00a [facility] Jennifer Akers MD M54.32 Sciatica, LEFT side H61.21 Impacted cerumen, RIGHT ear H65.22 Chronic serous otitis media, LEFT ear Office Visit 05/07/2015 2:45p [facility] Jennifer Akers MD K21.9 Gastro- esophageal reflux disease without esophagitis R73.01 Impaired fasting glucose M54.2 Cervicalgia M54.32 Sciatica, LEFT side J30.9 Allergic rhinitis, unspecified J45.909 Unspecified asthma, uncomplicated K59.00 Constipation, unspecified M79.7 Fibromyalgia Office Visit 03/25/2015 3:45p [facility] Jennifer Akers MD M79.7 Fibromyalgia J32.9 Chronic sinusitis, unspecified Office Visit 02/19/2015 1:30p [facility] Jennifer Akers MD K21.9 Gastro- esophageal reflux disease without esophagitis R73.01 Impaired fasting glucose M54.2 Cervicalgia M54.32 Sciatica, LEFT side J30.9 Allergic rhinitis, unspecified J45.909 Unspecified asthma, uncomplicated K59.00 Constipation, unspecified J32.9 Chronic sinusitis, unspecified M79.7 Fibromyalgia Office Visit 01/14/2015 4:00p [facility] Joanna Goff, 461.9 Sinusitis Acute [employer] Unspec Office Visit 11/16/2014 1:45p [facility] Jennifer Akers MD 530.81 Esophageal Reflux 790.21 Impaired Fasting Glucose 723.1 Cervicalgia 724.3 Sciatica 477.9 Rhinitis Allergic Cause Unspec 493.00 Asthma Extrinsic Unspecified 564.00 Constipation Unspecified 562.13 Diverticulitis Colon W/ Hemorrhage Office Visit 10/02/2014 4:30p [facility] Jennifer Akers MD 562.13 Diverticulitis Colon W/ Hemorrhage 564.00 Constipation Unspecified Office Visit 09/25/2014 11:00a [facility] Suzie Estes, 564.00 Constipation PA Unspecified Plan of Treatment Future Appointment(s):10/18/2018 8:40 am - Schedule, Laboratory at [facility]2018 9:30 am - Jennifer Akers MD at [facility]07/23/2018 - Darron Bey, DOL03.116 Cellulitis of LEFT lower limbNew Medication:Doxycycline Monohydrate 100 mg - 1 by mouth twice a dayFollow up:Follow up as needed.
[2018-08-20 16:47] VITALS: BP 143/82
--- NOTE | 2018-08-20 17:01 | UC ---
UC General HPI - HPI Summary HPI Summary: pt was dx with bronchitis a few weeks ago following a flu like illness. he was tx with a zapk which may have helped a little. he retruns for an ongoing congested cough. no fever or cp. + hx asthma but not neb use, ran out of the solution. cxr on last visit was negative. - History of Current Complaint Chief Complaint: UCRespiratory Stated Complaint: F/U BRONCHITIS Time Seen by Provider: 08/20/18 16:52 Hx Obtained From: Patient Onset/Duration: Gradual Onset Timing: Constant Pain Intensity: 0 Associated Signs & Symptoms: Positive: Cough, SOB, Wheezing. Negative: Chest Pain, Fever - Allergy/Home Medications Allergies/Adverse Reactions: Allergies Allergy/AdvReac Type Severity Reaction Status Date / Time levofloxacin Allergy Severe RESP Verified 08/01/18 16:14 DISTRESS Sulfa (Sulfonamide Allergy Severe HEART Verified 08/01/18 16:14 Antibiotics) STOPPED amoxicillin Allergy Intermediate Rash Verified 08/01/18 16:14 cefaclor [From [facility]] Allergy Mild Rash Verified 08/01/18 16:14 codeine AdvReac Mild MIGRANES Verified 08/01/18 16:14 PMH/Surg Hx/FS Hx/Imm Hx - Additional Past Medical History Additional PMH: Fibromyalgia Respiratory History: Asthma GI/ History: Gastroesophageal Reflux - Surgical History Surgical History: Yes Surgery Procedure, Year, and Place: cholecystectomy. hernia repair x3. acl left knee. sinus surgery x2 - Family History Known Family History: Positive: Cardiac Disease, Hypertension, Other - no fhx PE - Social History Alcohol Use: None Substance Use Type: None Smoking Status (MU): Never Smoked Tobacco Have You Smoked in the Last Year: No - Immunization History Most Recent Influenza Vaccination: Not the 2017/2017 Season Hx Tetanus, Diphtheria Vaccination: Yes Vaccination Up to Date: Yes Review of Systems All Other Systems Reviewed And Are Negative: Yes Respiratory: Positive: Shortness Of Breath, Cough Musculoskeletal: Positive: Myalgia - chronic(fibromyalgia) Physical Exam Triage Information Reviewed: Yes Appearance: Well-Appearing Vital Signs: Initial Vital Signs Temp 98.1 F 08/20/18 16:43 Pulse 80 08/20/18 16:43 Resp 18 08/20/18 16:43 BP 143/82 08/20/18 16:43 Pulse Ox 97 08/20/18 16:43 Vital Signs Reviewed: Yes Eyes: Positive: Conjunctiva Clear ENT: Positive: Pharynx normal, TMs normal. Negative: Nasal congestion, Nasal drainage Neck: Positive: Supple, Nontender, No Lymphadenopathy Respiratory: Positive: Lungs clear, No accessory muscle use, Decreased breath sounds - slight. Negative: Crackles, Rhonchi, Wheezing Cardiovascular: Positive: RRR, No Murmur Abdomen Description: Positive: Nontender, No Organomegaly, Soft Bowel Sounds: Positive: Present Musculoskeletal: Positive: ROM Intact Neurological: Positive: Alert Psychological: Positive: Age Appropriate Behavior Skin Exam: Normal Course/Dx - Differential Dx - Multi-Symptom Differential Diagnoses: Other - cxr on prior visit was negative. no fever and nothing on exam to suggest pneumonia. will tx for asthma flare with close f/u pcp. no indication for an antivbiotic, - Diagnoses Provider Diagnosis: Asthma Discharge - Sign-Out/Discharge Documenting (check all that apply): Patient Departure All imaging exams completed and their final reports reviewed: No Studies - Discharge Plan Condition: Stable Disposition: HOME Prescriptions: Albuterol 2.5MG/3ML (0.083%)* [Ventolin 2.5 MG/3 ML NEB.ABELARDO*] 2.5 mg INH Q6H #1 box predniSONE [Prednisone 20 MG TAB] 40 mg PO DAILY 5 Days #10 tablet Patient Education Materials: Asthma (DC) Referrals: Jennifer Akers MD [Primary Care Provider] - 5 Days - Billing Disposition and Condition Condition: STABLE Disposition: Home
== END 2018-08-20 17:12 | disposition home or self-care (01) ==
LOC: UCCORT 14:46
DX: J45.909 Unspecified asthma, uncomplicated (principal); Z88.1 Allergy status to other antibiotic agents; Z88.2 Allergy status to sulfonamides; Z88.5 Allergy status to narcotic agent
CPT/HCPCS: 99212; G0463